=== PATIENT | female | born 1995 | race Caucasian/White ===

== ENCOUNTER 2017-11-08 22:03 | Emergency (ER) | payer OTHER ==
[2017-11-08 22:18] VITALS: BP 124/88; PULSE 74; RESP 16; TEMP 98.2
[2017-11-08] MEDS ORDERED: IBUPROFEN 800 MG TAB PO STA (22:42)
--- NOTE | 2017-11-08 22:45 | ED ---
Back Pain HPI - General Chief Complaint: Back Pain/Injury Stated Complaint: back pain Time Seen by Provider: 11/08/17 22:28 Source: patient Limitations: no limitations - History of Present Illness Initial Comments: this is a 22-year-old female, who is 6 weeks presenting today for chief complaint of low back pain 2 days. Patient states that she just began working again 2 days ago, and since she has been having increasing low back pain. She states that is worse when she bends forward or slouches. Patient states that the pain is localized to the lumbar spine without radiation. Patient denies any trauma to the lumbar spine, falls, pain in the lower extremities, numbness, tingling, muscle weakness of the lower extremities, tingling or paresthesias. Patient denies any loss of bowel bladder control, urinary retention, IV drug use, fever, chills or any other associated symptoms. Patient states that she has not applied ice to her back or take any medication. She is breast-feeding.Vital signs stable upon arrival, afebrile. Remainder of review of systems negative, patient denies any recent fever, chills , shortness of breath, chest pain, abdominal pain, nausea or vomiting, numbness or tingling, dysuria or hematuria, constipation or diarrhea, headaches or visual changes, or any other complaints. - Related Data Previous Rx's Medication Instructions Recorded Doxycycline [Vibramycin] 100 mg PO Q12HR #56 capsule 11/11/15 Ibuprofen [Motrin] 800 mg PO Q8H PRN 7 Days #21 tab 11/08/17 Allergies Allergy/AdvReac Type Severity Reaction Status Date / Time No Known Allergies Allergy Verified 11/08/17 22:19 Review of Systems ROS Statement: Those systems with pertinent positive or pertinent negative responses have been documented in the HPI. ROS Other: All systems not noted in ROS Statement are negative. Constitutional: Denies: fever, chills, weight change, night sweats Respiratory: Denies: cough, dyspnea Cardiovascular: Denies: chest pain, palpitations, dyspnea on exertion, edema Gastrointestinal: Denies: abdominal pain, nausea, vomiting, diarrhea, constipation Genitourinary: Denies: urgency, dysuria Musculoskeletal: Reports: as per HPI, back pain, myalgia. Denies: joint swelling, arthralgia Skin: Denies: rash Neurological: Denies: headache, weakness, numbness, paresthesias, confusion, abnormal gait Psychiatric: Denies: depression Past Medical History Past Medical History: No Reported History Additional Past Medical History / Comment(s): left wrist fracture History of Any Multi-Drug Resistant Organisms: None Reported Past Surgical History: No Surgical Hx Reported Past Psychological History: Anxiety Smoking Status: Former smoker Past Alcohol Use History: None Reported Past Drug Use History: None Reported General Exam - General Exam Comments Initial Comments: General: The patient is awake and alert, in no distress, and does not appear acutely ill. Eye: Pupils are equal, round and reactive to light, extra-ocular movements are intact. No nystagmus. There is normal conjunctiva bilaterally. No signs of icterus. Ears, nose, mouth and throat: There are moist mucous membranes and no oral lesions. Neck: The neck is supple, there is no tenderness or JVD. Cardiovascular: There is a regular rate and rhythm. No murmur, rub or gallop is appreciated. Respiratory: Lungs are clear to auscultation, respirations are non-labored, breath sounds are equal. No wheezes, stridor, rales, or rhonchi. Gastrointestinal: Soft, non-distended, non-tender abdomen without masses or organomegaly noted. There is no rebound or guarding present. No CVA tenderness. Bowel sounds are unremarkable.no pulsatile masses. Musculoskeletal: Full ROM at the lumbar spine with for flexion, hyperextension, rotation, lateral flexion, she notes discomfort with forward flexion, however she does movements with ease and without hesitation.examined Strength 5/5 of the lower extremities equally bilaterally. Sensation intact of the lower equally bilaterally, including in the saddle region. DP and radial pulses equal bilaterally 2+. +2 deep tendon reflexes including patellar and Achilles. No evidence of mild clonus or fascicular lesions. Patient is able to heel and toe walk without difficulty. Negative straight leg raise bilaterally. Neurological: A&O x 3. CN II-XII intact, There are no obvious motor or sensory deficits. Coordination appears grossly intact. Speech is normal. Skin: Skin is warm and dry and no rashes or lesions are noted. Psychiatric: Cooperative, appropriate mood & affect, normal judgment. Limitations: no limitations Course Vital Signs 11/08/17 22:14 Temperature 98.2 F Pulse Rate 74 Respiratory 16 Rate Blood Pressure 124/88 O2 Sat by Pulse 99 Oximetry Medical Decision Making - Medical Decision Making at this time given no history of trauma, no history of IV drug use and patient is afebrile at low suspicion for a fracture of the spine or epidural abscess. Given patient's pain correlating with going back to work after 6 weeks off I suspicion for low back strain. Patient states that she has to a lot of stretching and bending over at work. This time I feel patient has low back strain, I would benefit from rest, icing and heating of the lumbar spine and taking ibuprofen 800 for pain management. Case discussed in detail with Dr. Galvin who agrees the plan. pt d/c in stable condition. patient is told to return to emergency department for any fever, night sweats, lower extremity weakness, loss of bowel bladder control or worsening/change in symptoms. Patient verbalized understanding. patient is instructed not to use ibuprofen and breast feed within 8 hours of dosage, pt verbalized understanding. Patient was instructed to follow-up with primary care 1-2 days. Patient agreed. Disposition Clinical Impression: Low back strain Disposition: HOME SELF-CARE Condition: Good Instructions: Low Back Strain (ED), Acute Low Back Pain (ED) Additional Instructions: Please use medication as discussed. Please follow-up with family doctor in the next 2 days of symptoms have not improved. Please return to emergency room if the symptoms increase or worsen or for any other concerns. Prescriptions: Ibuprofen [Motrin] 800 mg PO Q8H PRN 7 Days #21 tab PRN Reason: Pain Is patient prescribed a controlled substance at d/c from ED?: No Referrals: None,Stated [Primary Care Provider] - 1-2 days Time of Disposition: 22:45
== END 2017-11-08 22:58 | disposition home or self-care (01) ==
LOC: EC 22:03
DX: S39.012A Strain of muscle, fascia and tendon of lower back, initial encounter (principal); Z87.891 Personal history of nicotine dependence; X50.9XXA Other and unspecified overexertion or strenuous movements or postures, initial encounter
CPT/HCPCS: 99283

== ENCOUNTER 2018-03-18 12:34 | Emergency (ER) | payer OTHER ==
--- NOTE | 2018-03-18 13:48 | ED ---
General Adult HPI - General Chief complaint: Abdominal Pain Stated complaint: constipation Time Seen by Provider: 03/18/18 13:11 Source: patient, RN notes reviewed Mode of arrival: ambulatory Limitations: no limitations - History of Present Illness Initial comments: 23-year-old female presents to the emergency department for a chief complaint of constipation. Patient states she has had some lower abdominal cramping for the past 2 days. She states she has not had a bowel movement for 2 days. She states prior to that she has had bright red blood when wiping after a bowel movement and some pain. Patient states her bowel movements are smaller than normal. She has not taken anything for constipation. Patient denies dysuria. Patient does admit to vaginal discharge, denies concern for STDs at this time. Patient denies nausea and vomiting, states she is eating and drinking normally. Patient unsure but states there is a chance of . Patient has no other complaints at this time including shortness of breath, chest pain, nausea or vomiting, headache, or visual changes. - Related Data Home Medications Medication Instructions Recorded Confirmed No Known Home Medications 03/18/18 03/18/18 Allergies Allergy/AdvReac Type Severity Reaction Status Date / Time No Known Allergies Allergy Verified 03/18/18 13:30 Review of Systems ROS Statement: Those systems with pertinent positive or pertinent negative responses have been documented in the HPI. ROS Other: All systems not noted in ROS Statement are negative. Past Medical History Past Medical History: No Reported History Additional Past Medical History / Comment(s): left wrist fracture History of Any Multi-Drug Resistant Organisms: None Reported Past Surgical History: No Surgical Hx Reported Past Psychological History: Anxiety Smoking Status: Current every day smoker Past Alcohol Use History: None Reported Past Drug Use History: Marijuana General Exam Limitations: no limitations General appearance: alert, in no apparent distress Head exam: Present: atraumatic, normocephalic, normal inspection Eye exam: Present: normal appearance, PERRL, EOMI. Absent: scleral icterus, conjunctival injection, periorbital swelling ENT exam: Present: normal exam, mucous membranes moist Neck exam: Present: normal inspection, full ROM. Absent: tenderness, meningismus, lymphadenopathy Respiratory exam: Present: normal lung sounds bilaterally. Absent: respiratory distress, wheezes, rales, rhonchi, stridor Cardiovascular Exam: Present: regular rate, normal rhythm, normal heart sounds. Absent: systolic murmur, diastolic murmur, rubs, gallop, clicks GI/Abdominal exam: Present: soft, normal bowel sounds. Absent: distended, tenderness (no significant abdominal tenderness. no mcburney point tenderness, negative rovsing, obturator, no rebound tenderness), guarding, rebound, rigid Rectal exam: Present: normal inspection, normal rectal tone, heme (+) stool. Absent: bloody stool, fecal impaction, hemorrhoids, mass, tenderness External exam: Present: normal external exam, other ([place] as [employer]). Absent : erythema, swelling, lesions, lacerations, ecchymosis Speculum exam: Present: normal speculum exam. Absent: erythema, vaginal discharge, cervical discharge, vaginal bleeding, foreign body, tissue, laceration By manual exam: Present: normal by manual exam. Absent: cervical motion tenderness, adnexal tenderness, adnexal mass, uterine enlargement, uterine tenderness, other Neurological exam: Present: alert, oriented X3, CN II-XII intact Psychiatric exam: Present: normal affect, normal mood Course Vital Signs 03/18/18 03/18/18 12:36 14:37 Temperature 98.1 F Pulse Rate 70 59 L Respiratory 18 20 Rate Blood Pressure 104/68 113/77 O2 Sat by Pulse 100 100 Oximetry Medical Decision Making - Medical Decision Making 23-year-old female presents to the emergency department for constipation. Patient states she has not had a bowel movement for 2 days and previously her bowel movements have been harder and smaller than normal. Patient states she feels she needs to have a bowel movement. Patient has also noticed small bright red blood after wiping. She also admits to vaginal discharge. Pelvic exam was done which did not demonstrate any significant vaginal discharge however cultures of gonorrhea chlamydia and Trichomonas were obtained. Trichomonas negative. Gonorrhea and chlamydia pending, patient refuses empiric treatment. Unimpressive abdominal exam, no significant tenderness. Rectal exam did not reveal any impaction Or hemorrhoids. CBC and CMP are unremarkable. Glucose 69, patient given juice and chips. Urine does not show any significant evidence of infection, this will be cultured. Occult stool was positive. Patient was given magnesium citrate, she would prefer to take this at home. I did recommend following up with primary care to make sure blood in the stool resolves. No gross blood noted on exam. Patient will return if she has any worsening symptoms or if symptoms persist after magnesium citrate. Also discussed high fiber diet. - Lab Data Result diagrams: 03/18/18 13:15 03/18/18 13:15 Lab Results 03/18/18 03/18/18 03/18/18 Range/Units 13:15 13:15 13:15 WBC (3.8-10.6) k/uL RBC (3.80-5.40) m/uL Hgb (11.4-16.0) gm/dL Hct (34.0-46.0) % MCV (80.0-100.0) fL MCH (25.0-35.0) pg MCHC (31.0-37.0) g/dL RDW (11.5-15.5) % Plt Count (150-450) k/uL Neutrophils % % Lymphocytes % % Monocytes % % Eosinophils % % Basophils % % Neutrophils # (1.3-7.7) k/uL Lymphocytes # (1.0-4.8) k/uL Monocytes # (0-1.0) k/uL Eosinophils # (0-0.7) k/uL Basophils # (0-0.2) k/uL Manual Slide Review Large Platelets Sodium 142 (137-145) mmol/L Potassium 3.9 (3.5-5.1) mmol/L Chloride 109 H (98-107) mmol/L Carbon Dioxide 26 (22-30) mmol/L Anion Gap 7 mmol/L BUN 9 (7-17) mg/dL Creatinine 0.66 (0.52-1.04) mg/dL Est GFR (CKD-EPI)AfAm >90 (>60 ml/min/1.73 sqM) Est GFR (CKD-EPI)NonAf >90 (>60 ml/min/1.73 sqM) Glucose 69 L (74-99) mg/dL Calcium 9.7 (8.4-10.2) mg/dL Total Bilirubin 0.6 (0.2-1.3) mg/dL AST 19 (14-36) U/L ALT 25 (9-52) U/L Alkaline Phosphatase 29 L (38-126) U/L Total Protein 6.4 (6.3-8.2) g/dL Albumin 4.1 (3.5-5.0) g/dL Amylase 51 (30-110) U/L Lipase 47 (23-300) U/L Urine Color Yellow Urine Appearance Cloudy H (Clear) Urine pH 7.0 (5.0-8.0) Ur Specific [place] 1.019 (1.001-1.035) Urine Protein Trace H (Negative) Urine Glucose (UA) Negative (Negative) Urine Ketones Negative (Negative) Urine Blood Negative (Negative) Urine Nitrite Negative (Negative) Urine Bilirubin Negative (Negative) Urine Urobilinogen 2.0 (<2.0) mg/dL Ur Leukocyte Esterase Negative (Negative) Ur Squamous Epith Cells 2 (0-4) /hpf Amorphous Sediment Moderate H (None) /hpf Hyaline Casts 3 H (0-2) /lpf Urine Mucus Few H (None) /hpf Urine HCG, Qual Not Detected (Not Detectd) Stool Occult Blood (Negative) Trichomonas Ag (Rapid) (Negative) 03/18/18 03/18/18 03/18/18 Range/Units 13:15 14:06 14:06 WBC 4.6 (3.8-10.6) k/uL RBC 4.51 (3.80-5.40) m/uL Hgb 12.5 (11.4-16.0) gm/dL Hct 39.1 (34.0-46.0) % MCV 86.7 (80.0-100.0) fL MCH 27.7 (25.0-35.0) pg MCHC 31.9 (31.0-37.0) g/dL RDW 14.7 (11.5-15.5) % Plt Count 145 L (150-450) k/uL Neutrophils % 51 % Lymphocytes % 39 % Monocytes % 6 % Eosinophils % 1 % Basophils % 1 % Neutrophils # 2.3 (1.3-7.7) k/uL Lymphocytes # 1.8 (1.0-4.8) k/uL Monocytes # 0.3 (0-1.0) k/uL Eosinophils # 0.1 (0-0.7) k/uL Basophils # 0.0 (0-0.2) k/uL Manual Slide Review Performed Large Platelets Present Sodium (137-145) mmol/L Potassium (3.5-5.1) mmol/L Chloride (98-107) mmol/L Carbon Dioxide (22-30) mmol/L Anion Gap mmol/L BUN (7-17) mg/dL Creatinine (0.52-1.04) mg/dL Est GFR (CKD-EPI)AfAm (>60 ml/min/1.73 sqM) Est GFR (CKD-EPI)NonAf (>60 ml/min/1.73 sqM) Glucose (74-99) mg/dL Calcium (8.4-10.2) mg/dL Total Bilirubin (0.2-1.3) mg/dL AST (14-36) U/L ALT (9-52) U/L Alkaline Phosphatase (38-126) U/L Total Protein (6.3-8.2) g/dL Albumin (3.5-5.0) g/dL Amylase (30-110) U/L Lipase (23-300) U/L Urine Color Urine Appearance (Clear) Urine pH (5.0-8.0) Ur Specific [place] (1.001-1.035) Urine Protein (Negative) Urine Glucose (UA) (Negative) Urine Ketones (Negative) Urine Blood (Negative) Urine Nitrite (Negative) Urine Bilirubin (Negative) Urine Urobilinogen (<2.0) mg/dL Ur Leukocyte Esterase (Negative) Ur Squamous Epith Cells (0-4) /hpf Amorphous Sediment (None) /hpf Hyaline Casts (0-2) /lpf Urine Mucus (None) /hpf Urine HCG, Qual (Not Detectd) Stool Occult Blood Positive H (Negative) Trichomonas Ag (Rapid) Negative (Negative) Disposition Clinical Impression: Constipation, Abdominal cramping Disposition: HOME SELF-CARE Condition: Good Instructions: Constipation (ED), High Fiber Diet (ED), Abdominal Pain (ED) Additional Instructions: Take Mag Citrate as directed. Please follow up with primary care in 1-2 days. Return to the emergency department if you have any worsening symptoms. Is patient prescribed a controlled substance at d/c from ED?: No Referrals: Munira Kincaid MD [Primary Care Provider] - 1-2 days Time of Disposition: 15:35
[2018-03-18] MEDS ORDERED: MAGNESIUM CITRATE 296 ML BOTTLE PO ONE (13:49)
[2018-03-18 14:08] LABS: Amorphous Sediment,Urine Moderate /hpf; Appearance,Urine Cloudy (Clear); Bilirubin,Urine Negative (Negative); Blood,Urine Negative (Negative); Color,Urine Yellow; Glucose,Urine (UA) Negative (Negative); Hyaline Casts,Urine 3 /lpf (0-2); Ketones,Urine Negative (Negative); Leukocyte Esterase,Urine Negative (Negative); Mucus,Urine Few /hpf; Nitrite,Urine Negative (Negative); Protein,Urine Trace (Negative); Specific Gravity,Urine 1.019 (1.001-1.035); Squamous Epithelial Cell,Urine 2 /hpf (0-4)
[2018-03-18 14:18] LABS: ALT 25 U/L (9-52); AST 19 U/L (14-36); Albumin 4.1 g/dL (3.5-5.0); Alkaline Phosphatase 29 U/L (38-126); Amylase 51 U/L (30-110); Anion Gap 7 mmol/L; Blood Urea Nitrogen 9 mg/dL (7-17); Calcium 9.7 mg/dL (8.4-10.2); Carbon Dioxide 26 mmol/L (22-30); Chloride 109 mmol/L (98-107); Glucose 69 mg/dL (74-99); Lipase 47 U/L (23-300); Potassium 3.9 mmol/L (3.5-5.1); Sodium 142 mmol/L (137-145); Total Bilirubin 0.6 mg/dL (0.2-1.3); Total Protein 6.4 g/dL (6.3-8.2)
[2018-03-18 14:22] LABS: Basophils % (A) 1 %; Eosinophils # (A) 0.1 k/uL (0-0.7); Eosinophils % (A) 1 %; HCT 39.1 % (34.0-46.0); HGB 12.5 gm/dL (11.4-16.0); Lymphocytes # (A) 1.8 k/uL (1.0-4.8); Lymphocytes % (A) 39 %; MCH 27.7 pg (25.0-35.0); MCHC 31.9 g/dL (31.0-37.0); MCV 86.7 fL (80.0-100.0); Mean Platelet Volume 10.5; Monocytes # (A) 0.3 k/uL (0-1.0); Monocytes % (A) 6 %; Neutrophils # (A) 2.3 k/uL (1.3-7.7); Neutrophils % (A) 51 %; Platelet Count 145 k/uL (150-450); RBC 4.51 m/uL (3.80-5.40); RDW 14.7 % (11.5-15.5); WBC 4.6 k/uL (3.8-10.6)
[2018-03-18 14:33] LABS: Large Platelets Present
[2018-03-18 16:00] VITALS: BP 124/87; PULSE 87; RESP 18; TEMP 98.4
[2018-03-19 13:50] LABS: C. trachomatis,PCR Negative (Neg,Equiv); Chlamydia trachomatis Source Vagina
[2018-03-19 13:56] LABS: N. gonorrhoeae,PCR Negative (Neg,Equiv); Neisseria Source Vagina
== END 2018-03-18 16:00 | disposition home or self-care (01) ==
LOC: EC 12:34
DX: K59.00 Constipation, unspecified (principal); F17.200 Nicotine dependence, unspecified, uncomplicated; Z53.29 Procedure and treatment not carried out because of patient's decision for other reasons
CPT/HCPCS: 36415; 80053; 81001; 81025; 82150; 82272; 83690; 85025; 87491; 87591; 87808; 99284

== ENCOUNTER 2019-01-11 14:11 | Emergency (ER) | payer OTHER ==
[2019-01-11 14:16] VITALS: RESP 18
[2019-01-11] MEDS ORDERED: ACETAMINOPHEN TAB 500 MG TAB PO STA (14:43)
[2019-01-11] MEDS ORDERED: SODIUM CHLORIDE 0.9% 1,000 ML IV STA (14:43)
--- NOTE | 2019-01-11 14:48 | ED ---
General Adult HPI - General Chief complaint: Abdominal Pain Stated complaint: 11 wks ,cramping Time Seen by Provider: 01/11/19 14:22 Source: patient, RN notes reviewed Mode of arrival: ambulatory Limitations: no limitations - History of Present Illness Initial comments: 23-year-old female currently about 11 weeks [facility] a chief complaint of pelvic cramping. Patient states that she noticed this last night and it went away. States that this morning she felt fine however the pain returned. She describes it as a sharp cramping pain in her lower pelvic area. Patient does admit to a very small amount of spotting this morning. Denies any dysuria, urinary frequency. Patient did have a [facility] intrauterine outpatient. She does have an appointment with Dr Mcgrath scheduled. Patient has no other complaints at this time including shortness of breath, chest pain, nausea or vomiting, headache, or visual changes. - Related Data Home Medications Medication Instructions Recorded Confirmed No Known Home Medications 03/18/18 03/18/18 Allergies Allergy/AdvReac Type Severity Reaction Status Date / Time No Known Allergies Allergy Verified 01/11/19 14:16 Review of Systems ROS Statement: Those systems with pertinent positive or pertinent negative responses have been documented in the HPI. ROS Other: All systems not noted in ROS Statement are negative. Past Medical History Past Medical History: No Reported History Additional Past Medical History / Comment(s): left wrist fracture History of Any Multi-Drug Resistant Organisms: None Reported Past Surgical History: No Surgical Hx Reported Past Psychological History: Anxiety Smoking Status: Current every day smoker Past Alcohol Use History: None Reported Past Drug Use History: Marijuana General Exam Limitations: no limitations General appearance: alert, in no apparent distress Head exam: Present: atraumatic, normocephalic, normal inspection Eye exam: Present: normal appearance, PERRL, EOMI. Absent: scleral icterus, conjunctival injection, periorbital swelling ENT exam: Present: normal exam, mucous membranes moist Neck exam: Present: normal inspection, full ROM. Absent: tenderness, meningismus, lymphadenopathy Respiratory exam: Present: normal lung sounds bilaterally. Absent: respiratory distress, wheezes, rales, rhonchi, stridor Cardiovascular Exam: Present: regular rate, normal rhythm, normal heart sounds. Absent: systolic murmur, diastolic murmur, rubs, gallop, clicks GI/Abdominal exam: Present: soft, normal bowel sounds. Absent: distended, tenderness (No abdominal tenderness whatsoever), guarding, rebound, rigid External exam: Present: normal external exam. Absent: erythema, swelling, lesions, lacerations, ecchymosis Speculum exam: Present: normal speculum exam. Absent: erythema, vaginal discharge, cervical discharge, vaginal bleeding, foreign body, tissue, laceration By manual exam: Present: uterine tenderness (Minimal uterine tenderness). Absent: normal by manual exam, cervical motion tenderness, adnexal tenderness, adnexal mass Back exam: Absent: CVA tenderness (R), CVA tenderness (L) Neurological exam: Present: alert Psychiatric exam: Present: normal affect, normal mood Course Vital Signs 01/11/19 14:13 Temperature 98.9 F Pulse Rate 77 Respiratory 18 Rate Blood Pressure 108/54 O2 Sat by Pulse 100 Oximetry Medical Decision Making - Medical Decision Making Patient presents for cramping and very minimal spotting earlier this morning. Abdomen is nontender. Patient did have some mild uterine tenderness on pelvic exam. CBC unremarkable. Platelet count is 149 however this is patient's baseline. CMP is unremarkable. Urinalysis does not show any evidence of infection. 2 months is negative, gonorrhea and chlamydia pending. Patient is O+ blood type, does not require RhoGAM. Ultrasound shows a single IUP at 13 weeks. Ventricles do appear visually somewhat prominent during the exam and a dedicated small parts evaluation is recommended. Patient's pain has improved significantly upon reevaluation. She is recommended to follow up with [employer] on Saturday to discuss these ultrasound findings. She will return if she has any worsening symptoms. - Lab Data Result diagrams: 01/11/19 15:00 01/11/19 15:00 Lab Results 01/11/19 01/11/19 01/11/19 Range/Units 15:00 15:00 15:00 WBC 6.7 (3.8-10.6) k/uL RBC 4.11 (3.80-5.40) m/uL Hgb 12.6 (11.4-16.0) gm/dL Hct 36.4 (34.0-46.0) % MCV 88.6 (80.0-100.0) fL MCH 30.7 (25.0-35.0) pg MCHC 34.7 (31.0-37.0) g/dL RDW 12.9 (11.5-15.5) % Plt Count 149 L (150-450) k/uL Neutrophils % 76 % Lymphocytes % 19 % Monocytes % 3 % Eosinophils % 1 % Basophils % 0 % Neutrophils # 5.1 (1.3-7.7) k/uL Lymphocytes # 1.3 (1.0-4.8) k/uL Monocytes # 0.2 (0-1.0) k/uL Eosinophils # 0.1 (0-0.7) k/uL Basophils # 0.0 (0-0.2) k/uL Sodium 137 (137-145) mmol/L Potassium 3.9 (3.5-5.1) mmol/L Chloride 105 (98-107) mmol/L Carbon Dioxide 26 (22-30) mmol/L Anion Gap 6 mmol/L BUN 10 (7-17) mg/dL Creatinine 0.50 L (0.52-1.04) mg/dL Est GFR (CKD-EPI)AfAm >90 (>60 ml/min/1.73 sqM) Est GFR (CKD-EPI)NonAf >90 (>60 ml/min/1.73 sqM) Glucose 74 (74-99) mg/dL Calcium 9.7 (8.4-10.2) mg/dL Total Bilirubin 0.2 (0.2-1.3) mg/dL AST 18 (14-36) U/L ALT 11 (9-52) U/L Alkaline Phosphatase 48 (38-126) U/L Total Protein 7.0 (6.3-8.2) g/dL Albumin 4.0 (3.5-5.0) g/dL Amylase 52 (30-110) U/L Lipase 40 (23-300) U/L Urine Color Urine Appearance (Clear) Urine pH (5.0-8.0) Ur Specific [place] (1.001-1.035) Urine Protein (Negative) Urine Glucose (UA) (Negative) Urine Ketones (Negative) Urine Blood (Negative) Urine Nitrite (Negative) Urine Bilirubin (Negative) Urine Urobilinogen (<2.0) mg/dL Ur Leukocyte Esterase (Negative) Urine WBC (0-5) /hpf Ur Squamous Epith Cells (0-4) /hpf Amorphous Sediment (None) /hpf Urine Mucus (None) /hpf Trichomonas Ag (Rapid) (Negative) Blood Type O Positive Blood Type Recheck O Pos Bld Type Recheck Status No 01/11/19 01/11/19 Range/Units 15:00 15:40 WBC (3.8-10.6) k/uL RBC (3.80-5.40) m/uL Hgb (11.4-16.0) gm/dL Hct (34.0-46.0) % MCV (80.0-100.0) fL MCH (25.0-35.0) pg MCHC (31.0-37.0) g/dL RDW (11.5-15.5) % Plt Count (150-450) k/uL Neutrophils % % Lymphocytes % % Monocytes % % Eosinophils % % Basophils % % Neutrophils # (1.3-7.7) k/uL Lymphocytes # (1.0-4.8) k/uL Monocytes # (0-1.0) k/uL Eosinophils # (0-0.7) k/uL Basophils # (0-0.2) k/uL Sodium (137-145) mmol/L Potassium (3.5-5.1) mmol/L Chloride (98-107) mmol/L Carbon Dioxide (22-30) mmol/L Anion Gap mmol/L BUN (7-17) mg/dL Creatinine (0.52-1.04) mg/dL Est GFR (CKD-EPI)AfAm (>60 ml/min/1.73 sqM) Est GFR (CKD-EPI)NonAf (>60 ml/min/1.73 sqM) Glucose (74-99) mg/dL Calcium (8.4-10.2) mg/dL Total Bilirubin (0.2-1.3) mg/dL AST (14-36) U/L ALT (9-52) U/L Alkaline Phosphatase (38-126) U/L Total Protein (6.3-8.2) g/dL Albumin (3.5-5.0) g/dL Amylase (30-110) U/L Lipase (23-300) U/L Urine Color Yellow Urine Appearance Cloudy H (Clear) Urine pH 6.0 (5.0-8.0) Ur Specific [place] 1.017 (1.001-1.035) Urine Protein Negative (Negative) Urine Glucose (UA) Negative (Negative) Urine Ketones Negative (Negative) Urine Blood Negative (Negative) Urine Nitrite Negative (Negative) Urine Bilirubin Negative (Negative) Urine Urobilinogen <2.0 (<2.0) mg/dL Ur Leukocyte Esterase Negative (Negative) Urine WBC 1 (0-5) /hpf Ur Squamous Epith Cells 1 (0-4) /hpf Amorphous Sediment Few H (None) /hpf Urine Mucus Rare H (None) /hpf Trichomonas Ag (Rapid) Negative (Negative) Blood Type Blood Type Recheck Bld Type Recheck Status Disposition Clinical Impression: Abdominal pain during Disposition: HOME SELF-CARE Condition: Good Instructions (If sedation given, give patient instructions): Abdominal Pain in (ED), Threatened Miscarriage (ED) Additional Instructions: Please follow up with Dr. Mcgrath tomorrow. Discussed need for a dedicated small parts ultrasound due to possibly dilated ventricles. if you have any worsening symptoms be sure to return to the emergency department. Is patient prescribed a controlled substance at d/c from ED?: No Referrals: Munira Kincaid MD [Primary Care Provider] - 1-2 days Florentino Mcgrath DO [REFERRING] - 1-2 days Time of Disposition: 16:16
[2019-01-11 15:16] LABS: Basophils % (A) 0 %; Eosinophils # (A) 0.1 k/uL (0-0.7); Eosinophils % (A) 1 %; HCT 36.4 % (34.0-46.0); HGB 12.6 gm/dL (11.4-16.0); Lymphocytes # (A) 1.3 k/uL (1.0-4.8); Lymphocytes % (A) 19 %; MCH 30.7 pg (25.0-35.0); MCHC 34.7 g/dL (31.0-37.0); MCV 88.6 fL (80.0-100.0); Mean Platelet Volume 8.1; Monocytes # (A) 0.2 k/uL (0-1.0); Monocytes % (A) 3 %; Neutrophils # (A) 5.1 k/uL (1.3-7.7); Neutrophils % (A) 76 %; Platelet Count 149 k/uL (150-450); RBC 4.11 m/uL (3.80-5.40); RDW 12.9 % (11.5-15.5); WBC 6.7 k/uL (3.8-10.6)
[2019-01-11 15:27] LABS: ALT 11 U/L (9-52); AST 18 U/L (14-36); African American GFR (CKD) >90 (>60 ml/min/1.73 sqM); Alkaline Phosphatase 48 U/L (38-126); Amylase 52 U/L (30-110); Anion Gap 6 mmol/L; Blood Urea Nitrogen 10 mg/dL (7-17); Calcium 9.7 mg/dL (8.4-10.2); Carbon Dioxide 26 mmol/L (22-30); Chloride 105 mmol/L (98-107); Glucose 74 mg/dL (74-99); Potassium 3.9 mmol/L (3.5-5.1); Sodium 137 mmol/L (137-145); Total Bilirubin 0.2 mg/dL (0.2-1.3)
--- NOTE | 2019-01-11 15:50 | US ---
EXAMINATION TYPE: Transabdominal DATE OF EXAM: 01/11/2019 3:21 PM COMPARISON: NONE CLINICAL HISTORY: pain cramping. Pt states cramping EXAM PERFORMED: Transabdominal (TA) EXAM MEASUREMENTS: GESTATIONAL AGE / DATING Physician Established: Not yet established Dates by LMP: (12 weeks/0 days) EDC: 07/26/2019 Dates by First Scan: No prior Dates by Current Scan for: (13 weeks/0 days) EDC: 07/19/2019 MATERNAL ANATOMY Uterus: 15.3 x 8.4 x 8.9 cm Right Ovary: 2.9 x 2.0 x 1.7 cm Left Ovary: 2.8 x 2.2 x 1.5 cm Post CDS / Adnexa: wnl Presence of free fluid: No GESTATION / SURVEY CRL: 6.6 cm (13 weeks/0 days) MSD: wnl Heart Rate: 165 bpm Rhythm: Normal IUP: Viable IUP Single, viable IUP/ Questionable dilated ventricles anteriorly, otherwise no other abnormality visu alized at this time IMPRESSION: 1. Single intrauterine gestation estimated at 13 weeks 0 days gestation. Cardiac activity measures 16 5 bpm. 2. Ventricles appear visually somewhat prominent during this examination. Dedicated small parts evaluation is recommended
[2019-01-11 15:52] LABS: Amorphous Sediment,Urine Few /hpf; Appearance,Urine Cloudy (Clear); Bilirubin,Urine Negative (Negative); Blood,Urine Negative (Negative); Color,Urine Yellow; Glucose,Urine (UA) Negative (Negative); Ketones,Urine Negative (Negative); Leukocyte Esterase,Urine Negative (Negative); Mucus,Urine Rare /hpf; Nitrite,Urine Negative (Negative); Protein,Urine Negative (Negative); Specific Gravity,Urine 1.017 (1.001-1.035); Squamous Epithelial Cell,Urine 1 /hpf (0-4); Urobilinogen,Urine <2.0 mg/dL (<2.0); WBC,Urine 1 /hpf (0-5)
[2019-01-11 16:33] VITALS: BP 112/69; PULSE 86; TEMP 98.2
[2019-01-13 15:20] LABS: C. trachomatis,PCR Negative (Neg,Equiv); Chlamydia trachomatis Source Vagina
[2019-01-13 15:46] LABS: N. gonorrhoeae,PCR Negative (Neg,Equiv); Neisseria Source Vagina
== END 2019-01-11 16:33 | disposition home or self-care (01) ==
LOC: EC 14:11
DX: O99.89 Other specified diseases and conditions complicating pregnancy, childbirth and the puerperium (principal); R10.2 Pelvic and perineal pain; O99.331 Smoking (tobacco) complicating pregnancy, first trimester; F17.200 Nicotine dependence, unspecified, uncomplicated; Z3A.13 13 weeks gestation of pregnancy
CPT/HCPCS: 36415; 76801; 80053; 81001; 82150; 83690; 84702; 85025; 86900; 86901; 87491; 87591; 87808; 96360; 99284

== ENCOUNTER → 2019-02-02 | Outpatient (CLI) | payer OTHER ==
--- NOTE | 2019-02-02 12:47 | US ---
EXAMINATION TYPE: US OB >= 14 wk fetus DATE OF EXAM: 02/02/2019 COMPARISON: First trimester ultrasound January 11, 2019 CLINICAL HISTORY: Z34.80 SUPERVISION OF OTHER NORMAL [id number]; right pelvic tenderness x 2 days TECHNIQUE: Transabdominal (TA) GESTATIONAL AGE / DATING Physician Established: (15 weeks/0 days) EDC: 07/27/2019 Dates by LMP: (15 weeks/1 day) EDC: 07/26/2019 Dates by First Scan: (16 weeks/1 day) EDC: 07/19/2019 Dates by Current Scan: (16 weeks/1day) EDC:07/19/2019) Beta HCG (if available): NA SURVEY IUP: Single PLACENTA: fundal posterior; lobular end shape to superior and inferior portions and inferior area is at patient's area of tenderness PREVIA: No Previa DIEGO: 11.6 cm Normal CERVICAL LENGTH (transabdominal: norm > 3.0cm): 3.03 cm BIOMETRY PRESENTATION: Breech LIE: Longitudinal BPD: 3.4 cm 16 weeks / 4 days HC: 12.3 cm 16 weeks / 1 day AC: 10.2 cm 16 weeks / 1 day FL: 2.0 cm 15 weeks / 6 days ESTIMATED WEIGHT IN GRAMS: 143.5 grams ESTIMATED WEIGHT IN LBS/OZ: 0 lbs. 5 oz. WEIGHT PERCENTAGE BASED ON ESTABLISHED DATES: 93.1% HC/AC: 1.21 Normal FL/AC: 19.25 Normal HEART RATE: 151 bpm RHYTHM: Normal Choroid Plexus = 0.64cm and is wnl. Single, live IUP,16 weeks/1day, EDC:07/19/2019, HR 151bpm. Redemonstration single live intrauterine . No cervical thinning. No ultrasound evidence for previa. Current breech presentation. Calculated amniotic fluid index within normal limits. biom etry measurements congruent and felt within normal limits. Choroid plexuses are within normal limits on the images saved. IMPRESSION: As above.
== END | disposition home or self-care (01) ==
LOC: RADUSWWP 09:57
PROVIDERS: ATTEND Obstetrics & Gynecology
DX: O32.1XX0 Maternal care for breech presentation, not applicable or unspecified (principal); Z3A.16 16 weeks gestation of pregnancy
CPT/HCPCS: 76805

== ENCOUNTER 2019-07-16 05:50 | Inpatient (IN) | payer OTHER ==
[2019-07-16] MEDS ORDERED: OXYTOCIN 10 UNIT/ML 1 ML VIAL IM PRN (06:14)
[2019-07-16] MEDS ORDERED: LIDOCAINE 0.5% (PF) 5 MG/ML (50 ML SDV) SQ PRN (06:14)
[2019-07-16] MEDS ORDERED: METHYLERGONOVINE 0.2 MG/ML 1 ML AMP IM PRN (06:14)
[2019-07-16] MEDS ORDERED: TERBUTALINE 1 MG/ML VIAL SQ PRN (06:14)
[2019-07-16] MEDS ORDERED: CARBOPROST TROMETHAMINE 250 MCG/ML 1 ML AMP IM PRN (06:14)
[2019-07-16] MEDS ORDERED: OXYTOCIN 30 UNITS/500 ML NS 30 UNIT in SALINE 1 500ML.BAG IV SCH (06:15)
[2019-07-16] MEDS: LACTATED RINGERS 1,000 ML IV SCH ×3 (06:52→13:12)
[2019-07-16 07:27] LABS: Basophils % (A) 0 %; Eosinophils # (A) 0.1 k/uL (0-0.7); Eosinophils % (A) 2 %; Lymphocytes # (A) 1.4 k/uL (1.0-4.8); Lymphocytes % (A) 25 %; MCH 31.4 pg (25.0-35.0); MCHC 33.5 g/dL (31.0-37.0); MCV 93.7 fL (80.0-100.0); Mean Platelet Volume 13.6; Monocytes # (A) 0.3 k/uL (0-1.0); Monocytes % (A) 6 %; Neutrophils # (A) 3.5 k/uL (1.3-7.7); Neutrophils % (A) 65 %; Platelet Count 114 k/uL (150-450); RBC 3.52 m/uL (3.80-5.40); RDW 13.6 % (11.5-15.5); WBC 5.4 k/uL (3.8-10.6)
[2019-07-16 07:35] LABS: Amphetamine Screen,Urine Not Detected (NotDetected); Barbiturate Screen,Urine Not Detected (NotDetected); Benzodiazepines Screen,Urine Not Detected (NotDetected); Cocaine Screen,Urine Not Detected (NotDetected); Methadone Screen, Urine Not Detected (NotDetected); Opiate Screen,Urine Not Detected (NotDetected); Oxycodone Screen, Urine Not Detected (NotDetected); Phencyclidine Screen,Urine Not Detected (NotDetected); Tricyclic Antidepressant,Urine Not Detected (NotDetected); Urn Cannabinoid Scrn Not Detected (NotDetected)
[2019-07-16 07:49] LABS: Large Platelets Present
--- NOTE | 2019-07-16 08:37 | P.HPOB ---
History of Present Illness H&P Date: 07/16/19 Chief Complaint: IUP at 39 and 0/7 weeks, IOL This is a 24-year-old 3 para 2001 at 39-0/7 weeks that presents to labor and delivery for elective induction of labor. Patient notes good movement denies contractions or vaginal bleeding. Patient has been receiving routine care with myself, since 21 weeks. blood work shows a blood type of O+, rubella status is immune, hepatitis b surface antigen negative, hiv negative, rpr nonreactive, group beta strep was negative. Review of Systems Constitutional: Denies chills, Denies fatigue, Denies fever Ears, nose, mouth and throat: Denies headache Cardiovascular: Reports leg edema Respiratory: Denies dyspnea Gastrointestinal: Denies constipation, Denies diarrhea, Denies nausea, Denies vomiting Genitourinary: Reports Past Medical History Past Medical History: No Reported History Additional Past Medical History / Comment(s): left wrist fracture History of Any Multi-Drug Resistant Organisms: None Reported Past Surgical History: No Surgical Hx Reported Past Anesthesia/Blood Transfusion Reactions: No Reported Reaction Past Psychological History: Anxiety Smoking Status: Former smoker Past Alcohol Use History: None Reported Past Drug Use History: Marijuana Additional Drug Use History / Comment(s): pt states quit smoking the beginning of the , also states she quit marijuana summer 2018 - Past Family History Mother Family Medical History: No Reported History Medications and Allergies Home Medications Medication Instructions Recorded Confirmed Type Pnv No.95/Ferrous Fum/Folic AC 1 tab PO DAILY 07/16/19 07/16/19 History [ Multivitamin Tablet] Allergies Allergy/AdvReac Type Severity Reaction Status Date / Time No Known Allergies Allergy Verified 07/16/19 06:08 Exam Osteopathic Statement: *. No significant issues noted on an osteopathic s tructural exam other than those noted in the History and Physical/Consult. 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 On cervical exam she is 2/70/-2 station bulging bag of water was noted amniotomy is performed and clear fluid was obtained. Results Result Diagrams: 07/16/19 06:54 Abnormal Lab Results - Last 24 Hours (Table) 07/16/19 Range/Units 06:54 RBC 3.52 L (3.80-5.40) m/uL Hgb 11.0 L (11.4-16.0) gm/dL Hct 33.0 L (34.0-46.0) % Plt Count 114 L (150-450) k/uL Assessment and Plan (1) Term Current Visit: Yes Status: Acute Code(s): Z34.90 - ENCNTR FOR SUPRVSN OF NORMAL , UNSP, UNSP TRIMESTER SNOMED Code(s): 00843780 Plan: Patient is admitted to labor and delivery for induction of labor. Pitocin induction is begun per hospital protocol. Patient does desire epidural for analgesia. Anticipate spontaneous vaginal delivery later today.
[2019-07-16] MEDS ORDERED: ROPIVACAINE 100 MG, fentaNYL (PF) 200 MCG in SODIUM CHLORIDE 0.9% 76 ML EPIDURAL ONE (13:11)
[2019-07-16] MEDS ORDERED: ACETAMINOPHEN TAB 325 MG TAB PO PRN (14:10)
[2019-07-16] MEDS ORDERED: SIMETHICONE 80 MG CHEWABLE PO PRN (14:10)
[2019-07-16] MEDS ORDERED: diphenhydrAMINE 25 MG CAP PO PRN (14:10)
[2019-07-16] MEDS ORDERED: LANOLIN CREAM 5 GM TUBE TOPICAL PRN (14:10)
[2019-07-16] MEDS ORDERED: HYDROcodone/APAP 5-325MG 1 EACH TAB PO PRN (14:10)
[2019-07-16] MEDS ORDERED: BENZOCAINE/MENTHOL SPRAY 1 GM/SPRAY AEROSOL TOPICAL PRN (14:10)
[2019-07-16] MEDS ORDERED: ZOLPIDEM 5 MG TAB PO PRN (14:10)
[2019-07-16] MEDS ORDERED: diphenhydrAMINE 50 MG/ML 1 ML VIAL IVP PRN ×2 (14:10)
[2019-07-16] MEDS ORDERED: HYDROCORTISONE 2.5% RECTAL CREAM 30 GM TUBE RECTAL PRN (14:10)
[2019-07-16] MEDS ORDERED: WITCH HAZEL 1 EACH MED..PAD TOPICAL PRN (14:10)
[2019-07-16] MEDS ORDERED: diphenhydrAMINE 50 MG CAP PO PRN (14:10)
[2019-07-16] MEDS ORDERED: OXYTOCIN 20 UNITS/1000 ML NS 1,000 ML IV SCH (14:15)
--- NOTE | 2019-07-16 15:35 | P.PROBDLV ---
Vaginal Delivery Note - . Vaginal Delivery Note: This pleasant 24-year-old 3 para 2001 at 39-0/7 weeks presented to labor and delivery for elective induction of labor. Patient was begun on Pitocin for induction of labor. Patient underwent amniotomy and clear fluid was obtained. Patient requested epidural placement soon afterwards. Epidural was placed without difficulty by the anesthesia . Patient progressed quickly to complete began pushing and had a normal spontaneous vaginal delivery of a viable female infant at 1346, weight of 7 lbs. 3 oz. with Apgars of 9 and 9 at one and 5 minutes respectively. After two-minute delayed the umbilical cord was doubly clamped and cut, and the was handed off to the maternal abdomen. The placenta was then delivered spontaneously intact with a three-vessel cord. The vaginal vault was inspected and no lacerations were noted. The uterus is noted to be firm and below the umbilicus, estimated blood loss 400 mL as after the placenta was delivered patient had significant blood loss. A Red rubber catheter was used to drain the bladder of approximately 100 mL of clear yellow urine. After a couple clots were expelled bleeding was noted to be much improved, Methergine was given. Patient and tolerated delivery well and are resting comfortably All counts were noted to be correct x 2
[2019-07-16] MEDS: SENNOSIDES-DOCUSATE SODIUM 1 EACH TAB PO SCH (20:43)
[2019-07-16] MEDS: IBUPROFEN 600 MG TAB PO PRN (20:43)
[2019-07-17] MEDS: IBUPROFEN 600 MG TAB PO PRN ×2 (06:44→16:29)
[2019-07-17 06:59] LABS: Basophils % (A) 0 %; Eosinophils # (A) 0.1 k/uL (0-0.7); Eosinophils % (A) 1 %; HCT 30.7 % (34.0-46.0); HGB 10.3 gm/dL (11.4-16.0); Lymphocytes # (A) 1.2 k/uL (1.0-4.8); Lymphocytes % (A) 17 %; MCH 30.9 pg (25.0-35.0); MCHC 33.6 g/dL (31.0-37.0); MCV 92.2 fL (80.0-100.0); Mean Platelet Volume 12.1; Monocytes # (A) 0.5 k/uL (0-1.0); Monocytes % (A) 6 %; Neutrophils # (A) 5.4 k/uL (1.3-7.7); Neutrophils % (A) 74 %; Platelet Count 126 k/uL (150-450); RBC 3.33 m/uL (3.80-5.40); WBC 7.3 k/uL (3.8-10.6)
[2019-07-17] MEDS: SENNOSIDES-DOCUSATE SODIUM 1 EACH TAB PO SCH (08:32)
--- NOTE | 2019-07-17 08:43 | P.DS ---
Providers Date of admission: 07/16/19 05:50 Expected date of discharge: 07/17/19 Attending physician: Cindy Alberts Primary care physician: Stated None - Discharge Diagnosis(es) (1) Term Current Visit: Yes Status: Acute (2) Status post normal vaginal delivery Current Visit: Yes Status: Acute Hospital Course: This 24-year-old 3 para 2001 at 39-0/7 weeks presented to labor and delivery for elective induction of labor. Patient was started on Pitocin induction of labor per hospital protocol. Patient underwent amniotomy clear fluid was obtained. Patient became uncomfortable and requested epidural placement. Epidural was placed without difficulty by the anesthesia department. Patient progressed quickly to complete began pushing normal spontaneous vaginal delivery of a viable female infant at 1346. Weight of 7 lbs. 3 oz. with Apgars of 9 and 9 at one and 5 minutes respectively. After two-minute delayed the umbilical cord was doubly clamped and cut. Patient did not sustain any vaginal lacerations during delivery. Placenta was delivered spontaneous intact three-vessel cord was noted. Patient's course has been essentially uneventful. On this day #1 she is ambulating and voiding without difficulty, she is breast-feeding with some difficulty. She states she is feeling cramping and just received ibuprofen. She does desire discharge home today. Patient Condition at Discharge: Good Plan - Discharge Summary New Discharge Prescriptions: No Action Pnv No.95/Ferrous Fum/Folic AC [ Multivitamin Tablet] 1 tab PO DAILY Discharge Medication List Pnv No.95/Ferrous Fum/Folic AC [ Multivitamin Tablet] 1 tab PO DAILY 07/16/19 [History] Follow up Appointment(s)/Referral(s): Cindy Alberts DO [Doctor of Osteopathic Medicine] - 6 Weeks Patient Instructions/Handouts: Vaginal Delivery (DC), Vaginal Delivery (GEN) Discharge Disposition: HOME SELF-CARE
[2019-07-17] MEDS ORDERED: PRENATAL VIT-IRON-FOLIC ACID 1 EACH CAP PO SCH (09:00)
[2019-07-17 09:16] VITALS: RESP 20
[2019-07-17 09:56] LABS: Large Platelets Present
[2019-07-17 17:19] VITALS: BP 110/71; PULSE 64; TEMP 99.3
== END 2019-07-17 20:30 | disposition home or self-care (01) | DRG 807 ==
LOC: 4FBP 05:50
PROVIDERS: ADMIT Obstetrics & Gynecology Obstetrics; ATTEND Obstetrics & Gynecology Obstetrics
PROC: 10907ZC Drainage of Amniotic Fluid, Therapeutic from Products of Conception, Via Natural or Artificial Opening (ICD-10-PCS; principal; 2019-07-16)
PROC: 3E033VJ Introduction of Other Hormone into Peripheral Vein, Percutaneous Approach (ICD-10-PCS; principal; 2019-07-16)
PROC: 10E0XZZ Delivery of Products of Conception, External Approach (ICD-10-PCS; principal; 2019-07-16)
DX: O99.344 Other mental disorders complicating childbirth (principal); Z37.0 Single live birth; F41.9 Anxiety disorder, unspecified; Z3A.39 39 weeks gestation of pregnancy; Z87.891 Personal history of nicotine dependence
CPT/HCPCS: 80306; 85025; 86850; 86900; 86901

== ENCOUNTER 2020-04-04 11:28 | Emergency (ER) | payer OTHER ==
[2020-04-04 11:36] VITALS: TEMP 99.1
--- NOTE | 2020-04-04 12:20 | ED ---
Psych HPI <Isaac Chavez - Last Filed: 04/04/20 16:12> - General Source: patient, police, RN notes reviewed Mode of arrival: ambulatory Limitations: no limitations <Bob Gillette - Last Filed: 04/05/20 22:54> - General Chief Complaint: Psychiatric Symptoms Stated Complaint: Mental Health Time Seen by Provider: 04/04/20 11:38 - History of Present Illness Initial Comments: This a 25-year-old female presents emergency Department chief complaint depression, suicidal ideation. Patient states she has a history of depression, schizophrenia. Patient's on any medications currently. She states it was not helping her. She has mid to marijuana use no alcohol use today. Patient denies any physical complaints she has been having thoughts of harming herself. (Bob Gillette) - Related Data Home Medications Medication Instructions Recorded Confirmed No Known Home Medications 04/04/20 04/04/20 Allergies Allergy/AdvReac Type Severity Reaction Status Date / Time No Known Allergies Allergy Verified 04/04/20 12:51 Review of Systems ROS Other: All systems not noted in ROS Statement are negative. <Isaac Chavez - Last Filed: 04/04/20 16:12> ROS Other: All systems not noted in ROS Statement are negative. <Bob Gillette - Last Filed: 04/05/20 22:54> ROS Statement: Those systems with pertinent positive or pertinent negative responses have been documented in the HPI. Past Medical History Past Medical History: No Reported History Additional Past Medical History / Comment(s): left wrist fracture History of Any Multi-Drug Resistant Organisms: None Reported Past Surgical History: No Surgical Hx Reported Past Anesthesia/Blood Transfusion Reactions: No Reported Reaction Past Psychological History: Anxiety, Depression Smoking Status: Current every day smoker Past Alcohol Use History: None Reported Past Drug Use History: Marijuana - Past Family History Mother Family Medical History: No Reported History <Bob Gillette - Last Filed: 04/05/20 22:54> General Exam Limitations: no limitations General appearance: alert, in no apparent distress Head exam: Present: atraumatic, normocephalic, normal inspection Eye exam: Present: normal appearance, PERRL, EOMI. Absent: scleral icterus, conjunctival injection, periorbital swelling ENT exam: Present: normal exam, normal oropharynx, mucous membranes moist, TM's normal bilaterally Neck exam: Present: normal inspection, full ROM. Absent: tenderness, meningismus, lymphadenopathy Respiratory exam: Present: normal lung sounds bilaterally. Absent: respiratory distress, wheezes, rales, rhonchi, stridor Cardiovascular Exam: Present: regular rate, normal rhythm, normal heart sounds. Absent: systolic murmur, diastolic murmur, rubs, gallop, clicks GI/Abdominal exam: Present: soft, normal bowel sounds. Absent: distended, tenderness, guarding, rebound, rigid Neurological exam: Present: alert, oriented X3, CN II-XII intact Psychiatric exam: Present: depressed, flat affect Skin exam: Present: warm, dry, intact, normal color. Absent: rash <Bob Gillette - Last Filed: 04/05/20 22:54> Course Vital Signs 04/04/20 04/04/20 11:31 16:23 Temperature 99.1 F Pulse Rate 55 L 86 Respiratory 19 20 Rate Blood Pressure 130/77 118/78 O2 Sat by Pulse 98 99 Oximetry Medical Decision Making <Isaac Chavez - Last Filed: 04/04/20 16:12> - Medical Decision Making Patient was given a steep plan and she was in agreement with the safety plan. Patient was no longer feeling suicidal at this time. (Isaac Chavez) - Lab Data Lab Results 04/04/20 Range/Units 14:03 Urine Opiates Screen Not Detected (NotDetected) Ur Oxycodone Screen Not Detected (NotDetected) Urine Methadone Screen Not Detected (NotDetected) Ur Propoxyphene Screen Not Detected (NotDetected) Ur Barbiturates Screen Not Detected (NotDetected) U Tricyclic Antidepress Not Detected (NotDetected) Ur Phencyclidine Scrn Not Detected (NotDetected) Ur Amphetamines Screen Not Detected (NotDetected) U Methamphetamines Scrn Not Detected (NotDetected) U Benzodiazepines Scrn Not Detected (NotDetected) Urine Cocaine Screen Not Detected (NotDetected) U Marijuana (THC) Screen Detected H (NotDetected) Disposition Is patient prescribed a controlled substance at d/c from ED?: No Time of Disposition: 16:13 <Isaac Chavez - Last Filed: 04/04/20 16:12> <Bob Gillette Last Filed: 04/05/20 22:54> Clinical Impression: Depression Disposition: HOME SELF-CARE Condition: Good Referrals: None,Stated [Primary Care Provider] - 1-2 days
[2020-04-04 14:22] LABS: Amphetamine Screen,Urine Not Detected (NotDetected); Barbiturate Screen,Urine Not Detected (NotDetected); Benzodiazepines Screen,Urine Not Detected (NotDetected); Cocaine Screen,Urine Not Detected (NotDetected); Methadone Screen, Urine Not Detected (NotDetected); Opiate Screen,Urine Not Detected (NotDetected); Oxycodone Screen, Urine Not Detected (NotDetected); Phencyclidine Screen,Urine Not Detected (NotDetected); Tricyclic Antidepressant,Urine Not Detected (NotDetected); Urn Cannabinoid Scrn Detected (NotDetected)
[2020-04-04 16:24] VITALS: BP 118/78; PULSE 86; RESP 20
== END 2020-04-04 16:26 | disposition home or self-care (01) ==
LOC: EC 11:28
DX: F32.9 Major depressive disorder, single episode, unspecified (principal); F17.200 Nicotine dependence, unspecified, uncomplicated
CPT/HCPCS: 80306; 82075; 99285

== ENCOUNTER 2020-11-25 09:05 | Emergency (ER) | payer OTHER ==
[2020-11-25 09:10] VITALS: RESP 18; TEMP 98.4
--- NOTE | 2020-11-25 10:02 | ED ---
URI HPI - General Chief Complaint: Upper Respiratory Infection Stated Complaint: congestion Time Seen by Provider: 11/25/20 09:13 Source: patient, RN notes reviewed Mode of arrival: ambulatory Limitations: no limitations - History of Present Illness Initial Comments: Patient is a 25-year-old female that presents to emergency department complaining of upper respiratory tract symptoms for the past several days. She notes she is 37 weeks . She notes that her other child recently tested positive for RSV so she came in today to get tested for that. She notes she has not taken any Tylenol or Motrin if she denied any fevers. She notes that she is wants the swab to see if she does have RSV at this time. She was otherwise well-appearing in no apparent distress or pain. She denied any chest pain headache nausea vomiting diarrhea constipation fever fatigue chills. She denied any abdominal cramping and vaginal bleeding or spotting. - Related Data Home Medications Medication Instructions Recorded Confirmed No Known Home Medications 11/25/20 11/25/20 Allergies Allergy/AdvReac Type Severity Reaction Status Date / Time No Known Allergies Allergy Verified 11/25/20 09:57 Review of Systems ROS Statement: Those systems with pertinent positive or pertinent negative responses have been documented in the HPI. ROS Other: All systems not noted in ROS Statement are negative. Past Medical History Past Medical History: No Reported History Additional Past Medical History / Comment(s): left wrist fracture History of Any Multi-Drug Resistant Organisms: None Reported Past Surgical History: No Surgical Hx Reported Past Anesthesia/Blood Transfusion Reactions: No Reported Reaction Past Psychological History: Anxiety, Depression Smoking Status: Never smoker Past Alcohol Use History: None Reported Past Drug Use History: None Reported - Past Family History Mother Family Medical History: No Reported History General Exam Limitations: no limitations General appearance: alert, in no apparent distress Head exam: Present: atraumatic, normocephalic, normal inspection Eye exam: Present: normal appearance, PERRL, EOMI. Absent: scleral icterus, conjunctival injection, periorbital swelling ENT exam: Present: normal exam, mucous membranes moist Neck exam: Present: normal inspection, full ROM. Absent: lymphadenopathy, thyromegaly Respiratory exam: Present: normal lung sounds bilaterally. Absent: respiratory distress, wheezes, rales, rhonchi, stridor Cardiovascular Exam: Present: regular rate, normal rhythm, normal heart sounds. Absent: systolic murmur, diastolic murmur, rubs, gallop, clicks Extremities exam: Present: normal inspection, full ROM, normal capillary refill. Absent: tenderness, pedal edema, joint swelling, calf tenderness Neurological exam: Present: alert, oriented X3 Psychiatric exam: Present: normal affect, normal mood Skin exam: Present: warm, dry, intact, normal color. Absent: rash Course Vital Signs 11/25/20 09:07 Temperature 98.4 F Pulse Rate 113 H Respiratory 18 Rate Blood Pressure 112/83 O2 Sat by Pulse 98 Oximetry Medical Decision Making - Medical Decision Making 25-year-old female complaining of upper respiratory tract symptoms been exposed to RSV. Cepheid 4 Plex ordered. Cepheid 4 Plex negative. Patient's vital signs are stable condition discharge home. Case discussed with Dr. Alcocer, patient can discharge home. - Lab Data Lab Results 11/25/20 Range/Units 09:20 Influenza Type A (PCR) Not Detected (Not Detectd) Influenza Type B (PCR) Not Detected (Not Detectd) RSV (PCR) Not Detected (Not Detectd) SARS-CoV-2 (PCR) Not Detected (Not Detectd) Disposition Clinical Impression: Upper respiratory tract infection Disposition: HOME SELF-CARE Condition: Stable Instructions (If sedation given, give patient instructions): Upper Respiratory Infection (ED) Additional Instructions: Please return to the Emergency Department if symptoms worsen or any other concerns. Take [id number] cough medicine as needed. Take Tylenol as needed for fevers. Follow-up with primary care 1 today's. Is patient prescribed a controlled substance at d/c from ED?: No Referrals: None,Stated [Primary Care Provider] - 1-2 days Time of Disposition: 11:09
[2020-11-25 11:18] VITALS: BP 121/89; PULSE 94
== END 2020-11-25 11:18 | disposition home or self-care (01) ==
LOC: EC 09:05
DX: O99.513 Diseases of the respiratory system complicating pregnancy, third trimester (principal); J06.9 Acute upper respiratory infection, unspecified; Z3A.37 37 weeks gestation of pregnancy; F41.9 Anxiety disorder, unspecified; F32.9 Major depressive disorder, single episode, unspecified
CPT/HCPCS: 87636; 99283

== ENCOUNTER 2020-12-14 06:00 | Inpatient (IN) | payer OTHER ==
[2020-12-14] MEDS ORDERED: CARBOPROST TROMETHAMINE 250 MCG/ML 1 ML AMP IM PRN (06:23)
[2020-12-14] MEDS ORDERED: LIDOCAINE 0.5% (PF) 5 MG/ML (50 ML SDV) SQ PRN (06:23)
[2020-12-14] MEDS ORDERED: METHYLERGONOVINE 0.2 MG/ML 1 ML AMP IM PRN (06:23)
[2020-12-14] MEDS ORDERED: TERBUTALINE 1 MG/ML VIAL SQ PRN (06:23)
[2020-12-14] MEDS ORDERED: OXYTOCIN 10 UNIT/ML 1 ML VIAL IM PRN (06:23)
[2020-12-14] MEDS ORDERED: OXYTOCIN 30 UNITS/500 ML NS 30 UNIT in SALINE 1 500ML.BAG IV SCH (06:30)
[2020-12-14] MEDS ORDERED: LACTATED RINGERS 1,000 ML IV SCH ×2 (06:30)
[2020-12-14 07:45] LABS: Basophils % (A) 1 %; Eosinophils # (A) 0.1 k/uL (0-0.7); Eosinophils % (A) 3 %; HCT 30.9 % (34.0-46.0); HGB 10.8 gm/dL (11.4-16.0); Lymphocytes # (A) 1.4 k/uL (1.0-4.8); Lymphocytes % (A) 29 %; MCH 31.1 pg (25.0-35.0); Monocytes # (A) 0.3 k/uL (0-1.0); Monocytes % (A) 6 %; Neutrophils # (A) 2.9 k/uL (1.3-7.7); Neutrophils % (A) 59 %; Platelet Count 113 k/uL (150-450); RBC 3.47 m/uL (3.80-5.40); WBC 4.9 k/uL (3.8-10.6)
--- NOTE | 2020-12-14 08:39 | P.HPOB ---
History of Present Illness H&P Date: 12/14/20 Chief Complaint: IUP at 39 and 6/7 weeks This is a 25-year-old that presents to labor and delivery for induction of labor. Patient has been receiving routine care which been essentially uncomplicated. Patient does have a significant history of anxiety and depression which is been controlled throughout the . Patient notes good movement, occ ctx, no VB, LOF On bloodwork this patient is a blood type of O+, rubella status immune, hepatitis B surface antigen negative, HIV negative, RPR nonreactive, group beta strep cultures negative. I Review of Systems Constitutional: Denies fatigue, Denies fever Ears, nose, mouth and throat: Denies headache Cardiovascular: Reports leg edema Respiratory: Denies dyspnea Gastrointestinal: Denies nausea, Denies vomiting Genitourinary: Reports Past Medical History Past Medical History: No Reported History Additional Past Medical History / Comment(s): left wrist fracture History of Any Multi-Drug Resistant Organisms: None Reported Past Surgical History: No Surgical Hx Reported Past Anesthesia/Blood Transfusion Reactions: No Reported Reaction Past Psychological History: Anxiety, Depression Smoking Status: Never smoker Past Alcohol Use History: None Reported Past Drug Use History: None Reported Additional Drug Use History / Comment(s): states she quit marijuana with - Past Family History Mother Family Medical History: No Reported History Medications and Allergies Home Medications Medication Instructions Recorded Confirmed Type Pnv,Calcium 72/Iron/Folic Acid 1 each PO DAILY 12/14/20 12/14/20 History [ Plus Tablet] Allergies Allergy/AdvReac Type Severity Reaction Status Date / Time No Known Allergies Allergy Verified 12/14/20 06:22 Exam Osteopathic Statement: *. No significant issues noted on an osteopathic structural exam other than those noted in the History and Physical/Consult. 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 heart tones noted be category 1 and she is jammie every 3 minutes. Results Result Diagrams: 12/14/20 06:35 Abnormal Lab Results - Last 24 Hours (Table) 12/14/20 Range/Units 06:35 RBC 3.47 L (3.80-5.40) m/uL Hgb 10.8 L (11.4-16.0) gm/dL Hct 30.9 L (34.0-46.0) % Assessment and Plan (1) Term Current Visit: No Status: Acute Code(s): Z34.90 - ENCNTR FOR SUPRVSN OF NORMAL , UNSP, UNSP TRIMESTER SNOMED Code(s): 32533777 Plan: This 25-year-old 003 at 39-6/7 weeks that presents to labor and delivery for induction of labor. Patient is admitted and Pitocin induction of labor is begun per hospital protocol. Options for analgesia discussed including Stadol and epidural. Patient will consider. Anticipate spontaneous vaginal delivery later today.
[2020-12-14 09:12] LABS: Large Platelets Present
[2020-12-14] MEDS ORDERED: BUTORPHANOL 1 MG/ML 1 ML VIAL IV PRN (10:28)
[2020-12-14] MEDS ORDERED: BENZOCAINE/MENTHOL SPRAY 1 GM/SPRAY AEROSOL TOPICAL PRN (11:19)
[2020-12-14] MEDS ORDERED: diphenhydrAMINE 50 MG CAP PO PRN (11:19)
[2020-12-14] MEDS ORDERED: ZOLPIDEM 5 MG TAB PO PRN (11:19)
[2020-12-14] MEDS ORDERED: diphenhydrAMINE 50 MG/ML 1 ML VIAL IVP PRN ×2 (11:19)
[2020-12-14] MEDS ORDERED: diphenhydrAMINE 25 MG CAP PO PRN (11:19)
[2020-12-14] MEDS ORDERED: SIMETHICONE 80 MG CHEWABLE PO PRN (11:19)
[2020-12-14] MEDS ORDERED: ACETAMINOPHEN TAB 325 MG TAB PO PRN (11:19)
[2020-12-14] MEDS ORDERED: HYDROCORTISONE 2.5% RECTAL CREAM 30 GM TUBE RECTAL PRN (11:19)
[2020-12-14] MEDS ORDERED: LANOLIN CREAM 5 GM TUBE TOPICAL PRN (11:19)
--- NOTE | 2020-12-14 11:22 | P.PROBDLV ---
Vaginal Delivery Note - . Vaginal Delivery Note: This is a 25-year-old 003 at 39-6/7 weeks that presented to labor and delivery for induction of labor. Patient was admitted to labor and delivery and Pitocin induction of labor was begun. Patient underwent amniotomy and clear fluid was obtained. Patient progressed in labor eventually requesting 1 dose of Stadol. Patient progressed quickly to complete and had a normal spontaneous vaginal delivery of a viable female infant at 1103, weight of 8 lbs. 0 oz. and Apgars of 8 and 9 at one and 5 minutes respectively. After two-minute delay the umbilical cord was doubly clamped and cut the placenta was delivered spontaneous intact with a three-vessel cord. On inspection the patient's vaginal vault no vaginal lacerations were appreciated. The bladder was drained for approximately 100 mL of clear yellow urine. A moderate lochia was appreciated therefore manual extraction revealed scant membranes with approximately 2 lemon-sized clots. Uterus was then noted to be firm and below the umbilicus. All counts were noted to be correct 2. Patient and infant tolerated delivery well and are resting comfortably.
[2020-12-14] MEDS: IBUPROFEN 600 MG TAB PO PRN ×2 (11:44→19:38)
[2020-12-14] MEDS: SENNOSIDES-DOCUSATE SODIUM 1 EACH TAB PO SCH (19:38)
[2020-12-15] MEDS: IBUPROFEN 600 MG TAB PO PRN (05:31)
[2020-12-15] MEDS: SENNOSIDES-DOCUSATE SODIUM 1 EACH TAB PO SCH (08:58)
[2020-12-15 09:16] VITALS: BP 119/71; PULSE 94; RESP 18; TEMP 99.5
--- NOTE | 2020-12-15 09:22 | P.DS ---
Providers Date of admission: 12/14/20 06:00 Expected date of discharge: 12/15/20 Attending physician: Cindy Alberts Primary care physician: Stated None - Discharge Diagnosis(es) (1) Term Current Visit: No Status: Acute (2) Status post normal vaginal delivery Current Visit: No Status: Acute Hospital Course: This is a 25-year-old 4 now para 3 that presented to labor and delivery at 39-6/7 weeks for induction of labor. Patient was admitted Pitocin induction of labor was begun per hospital protocol. Patient underwent amniotomy and clear fluid was obtained. Patient progressed quickly through labor she did receive 1 dose of Stadol. Patient progressed to complete had a normal spontaneous vaginal delivery of a viable female infant at 1103, weight of 8 lbs. 0 oz. Patient did not sustain any vaginal lacerations during delivery. Patient has done well . On this postoperative day #1 she is ambulating and voiding without difficulty. She is tolerating a regular diet without nausea or vomiting. States her pain is well-controlled with oral pain medication. She would like discharge home. Patient Condition at Discharge: Good Plan - Discharge Summary New Discharge Prescriptions: No Action Pnv,Calcium 72/Iron/Folic Acid [ Plus Tablet] 1 each PO DAILY Discharge Medication List Pnv,Calcium 72/Iron/Folic Acid [ Plus Tablet] 1 each PO DAILY 12/14/20 [History] Follow up Appointment(s)/Referral(s): Cindy Alberts DO [Doctor of Osteopathic Medicine] - 4 Weeks Patient Instructions/Handouts: Vaginal Delivery (GEN), Vaginal Delivery (DC) Discharge Disposition: HOME SELF-CARE
== END 2020-12-15 13:05 | disposition home or self-care (01) | DRG 807 ==
LOC: 4FBP 06:00
PROVIDERS: ADMIT Obstetrics & Gynecology Obstetrics; ATTEND Obstetrics & Gynecology Obstetrics
PROC: 10907ZC Drainage of Amniotic Fluid, Therapeutic from Products of Conception, Via Natural or Artificial Opening (ICD-10-PCS; principal; 2020-12-14)
PROC: 3E033VJ Introduction of Other Hormone into Peripheral Vein, Percutaneous Approach (ICD-10-PCS; principal; 2020-12-14)
PROC: 10E0XZZ Delivery of Products of Conception, External Approach (ICD-10-PCS; principal; 2020-12-14)
DX: O80 Encounter for full-term uncomplicated delivery (principal); Z37.0 Single live birth; Z3A.39 39 weeks gestation of pregnancy; Z79.899 Other long term (current) drug therapy; Z87.81 Personal history of (healed) traumatic fracture; Z86.59 Personal history of other mental and behavioral disorders
CPT/HCPCS: 85025; 86850; 86900; 86901

== ENCOUNTER 2021-03-22 14:55 | Emergency (ER) | payer OTHER ==
[2021-03-22 15:34] VITALS: BP 116/63; PULSE 86; RESP 18; TEMP 98.3
--- NOTE | 2021-03-22 16:30 | ED ---
General Adult HPI - General Chief complaint: Recheck/Abnormal Lab/Rx Stated complaint: Covid exposure/symptoms Source: patient Mode of arrival: ambulatory Limitations: no limitations - History of Present Illness Initial comments: 26-year-old female presents emergency department and requested covid testing. States that she was exposed and has missed work for the past 3 days. Her work is requesting a Covid test in order for her to return. Reports that her daughter has been sick with nasal congestion and fevers. Patient herself denies any symptoms. - Related Data Home Medications Medication Instructions Recorded Confirmed Pnv,Calcium 72/Iron/Folic Acid 1 each PO DAILY 12/14/20 12/14/20 [ Plus Tablet] Allergies Allergy/AdvReac Type Severity Reaction Status Date / Time No Known Allergies Allergy Verified 03/22/21 15:34 Review of Systems ROS Statement: Those systems with pertinent positive or pertinent negative responses have been documented in the HPI. ROS Other: All systems not noted in ROS Statement are negative. Past Medical History Past Medical History: No Reported History Additional Past Medical History / Comment(s): left wrist fracture History of Any Multi-Drug Resistant Organisms: None Reported Past Surgical History: No Surgical Hx Reported Past Anesthesia/Blood Transfusion Reactions: No Reported Reaction Past Psychological History: Anxiety, Depression Smoking Status: Never smoker Past Alcohol Use History: None Reported Past Drug Use History: None Reported - Past Family History Mother Family Medical History: No Reported History General Exam Limitations: no limitations Course Vital Signs 03/22/21 15:29 Temperature 98.3 F Pulse Rate 86 Respiratory 18 Rate Blood Pressure 116/63 O2 Sat by Pulse 98 Oximetry Medical Decision Making - Medical Decision Making Upon arrival patient was placed into room 33. Patient covid is negative. Patient will be discharged home with copies of her paperwork. Instructed to return for any new or worsening symptoms. Patient will need retesting if she does develop symptoms - Lab Data Lab Results 03/22/21 Range/Units 15:39 Coronavirus (PCR) Not Detected (Not Detectd) Disposition Clinical Impression: Exposure to COVID-19 virus Disposition: HOME SELF-CARE Condition: Stable Instructions (If sedation given, give patient instructions): Normal Exam (ED) Additional Instructions: Please follow up with your PCP in 2-4 days. Return to the ED for any new or worsening symptoms. Is patient prescribed a controlled substance at d/c from ED?: No Referrals: None,Stated [Primary Care Provider] - 1-2 days Time of Disposition: 16:29
== END 2021-03-22 17:59 | disposition home or self-care (01) ==
LOC: EC 14:55
DX: Z20.822 Contact with and (suspected) exposure to COVID-19 (principal); F41.9 Anxiety disorder, unspecified; F32.A Depression, unspecified
CPT/HCPCS: 87635; 99282

== ENCOUNTER 2021-04-21 11:26 | Emergency (ER) | payer OTHER ==
[2021-04-21 11:34] VITALS: TEMP 97.7
[2021-04-21 12:10] LABS: Appearance,Urine Cloudy (Clear); Bacteria,Urine Rare /hpf; Bilirubin,Urine Negative (Negative); Blood,Urine Large (Negative); Color,Urine Yellow; Glucose,Urine (UA) Negative (Negative); Ketones,Urine Negative (Negative); Leukocyte Esterase,Urine Moderate (Negative); Mucus,Urine Rare /hpf; Nitrite,Urine Negative (Negative); PH, Urine 7.5 (5.0-8.0); Protein,Urine 1+ (Negative); RBC,Urine 1 /hpf (0-5); Specific Gravity,Urine 1.017 (1.001-1.035); Squamous Epithelial Cell,Urine 19 /hpf (0-4); Urobilinogen,Urine <2.0 mg/dL (<2.0); WBC,Urine 22 /hpf (0-5)
[2021-04-21] MEDS ORDERED: SODIUM CHLORIDE 0.9% 1,000 ML IV STA (12:27)
--- NOTE | 2021-04-21 12:35 | ED ---
General Adult HPI - General Chief complaint: Vaginal Bleeding Stated complaint: wants test Time Seen by Provider: 04/21/21 11:51 Source: patient Mode of arrival: ambulatory Limitations: no limitations - History of Present Illness Initial comments: This female presents emergency department with vaginal bleeding and cramping 3 days. Patient states she had her fourth child through vaginal delivery on December 14. She states she had "normal bleeding for a few weeks which resolved in January." She states she believes she had her first menstrual cycle at the end of February that ended on March 05. Since March 05 she has not had any vaginal bleeding until 3 days ago. Patient states she did have a positive test yesterday. She states she has been having some vaginal bleeding/spotting with a couple with clots the size of a nickel that were passed yesterday. Since yesterday she has still been experiencing some vaginal bleeding/spotting. She denies any chest pain, shortness of breath, abdominal pain, nausea, vomiting, dizziness, lightheadedness, headache, change in bowel or bladder. - Related Data Home Medications Medication Instructions Recorded Confirmed Pnv,Calcium 72/Iron/Folic Acid 1 each PO DAILY 12/14/20 12/14/20 [ Plus Tablet] Allergies Allergy/AdvReac Type Severity Reaction Status Date / Time No Known Allergies Allergy Verified 04/21/21 11:34 Review of Systems ROS Statement: Those systems with pertinent positive or pertinent negative responses have been documented in the HPI. ROS Other: All systems not noted in ROS Statement are negative. Past Medical History Past Medical History: No Reported History Additional Past Medical History / Comment(s): left wrist fracture History of Any Multi-Drug Resistant Organisms: None Reported Past Surgical History: No Surgical Hx Reported Past Anesthesia/Blood Transfusion Reactions: No Reported Reaction Past Psychological History: Anxiety, Depression Smoking Status: Never smoker Past Alcohol Use History: None Reported Past Drug Use History: None Reported - Past Family History Mother Family Medical History: No Reported History General Exam Limitations: no limitations General appearance: alert, in no apparent distress Head exam: Present: atraumatic, normocephalic Eye exam: Present: normal appearance, PERRL, EOMI Pupils: Present: normal accommodation ENT exam: Present: mucous membranes moist Neck exam: Present: full ROM Respiratory exam: Present: normal lung sounds bilaterally. Absent: respiratory distress, wheezes, rales, rhonchi, stridor Cardiovascular Exam: Present: regular rate, normal rhythm, normal heart sounds. Absent: systolic murmur, diastolic murmur, rubs, gallop, clicks GI/Abdominal exam: Present: soft, tenderness (Mild tenderness to palpation of left lower quadrant), normal bowel sounds. Absent: distended, guarding, rebound, rigid Speculum exam: Present: other (Patient refused pelvic exam and said she will follow-up with her OB for this) Extremities exam: Present: normal inspection, full ROM, normal capillary refill. Absent: tenderness, pedal edema, joint swelling, calf tenderness Back exam: Present: normal inspection, full ROM. Absent: tenderness, CVA tenderness (R), CVA tenderness (L), paraspinal tenderness, vertebral tenderness Neurological exam: Present: alert, oriented X3, CN II-XII intact Psychiatric exam: Present: normal affect, normal mood Skin exam: Present: warm, dry, intact, normal color. Absent: rash Course Vital Signs 04/21/21 04/21/21 11:30 11:35 Temperature 97.7 F Pulse Rate 88 75 Respiratory 18 18 Rate Blood Pressure 111/67 118/72 O2 Sat by Pulse 99 97 Oximetry Medical Decision Making - Medical Decision Making This 26-year-old female presents emergency Department with a positive test and vaginal bleeding 3 days. Patient refused pelvic exam. ultrasound impression of single viable intrauterine as described above. Relatively small gestational sac. Heart rate 128 bpm. Labs unremarkable. Quantitative hCG 3885.5. Urine with 19 squamous epithelial cells, +1 protein, large blood. Patient denies any urinary symptoms. Discussed possible miscarriage with patient and the origins of repeat quantitative hCG in 48 hours. Prescription given prescription for quantitative serum hCG in 48 hours. Patient to follow-up with ART SUPERVISOR in 48 hours. Return precautions were discussed. Patient verbally agreed to plan. Patient sent home in stable condition. Case discussed with my attending, Dr. Sylvester - Lab Data Result diagrams: 04/21/21 12:40 04/21/21 12:40 Lab Results 04/21/21 04/21/21 04/21/21 Range/Units 11:41 11:41 12:40 WBC (3.8-10.6) k/uL RBC (3.80-5.40) m/uL Hgb (11.4-16.0) gm/dL Hct (34.0-46.0) % MCV (80.0-100.0) fL MCH (25.0-35.0) pg MCHC (31.0-37.0) g/dL RDW (11.5-15.5) % Plt Count (150-450) k/uL MPV Neutrophils % % Lymphocytes % % Monocytes % % Eosinophils % % Basophils % % Neutrophils # (1.3-7.7) k/uL Lymphocytes # (1.0-4.8) k/uL Monocytes # (0-1.0) k/uL Eosinophils # (0-0.7) k/uL Basophils # (0-0.2) k/uL Sodium 137 (137-145) mmol/L Potassium 4.1 (3.5-5.1) mmol/L Chloride 107 (98-107) mmol/L Carbon Dioxide 25 (22-30) mmol/L Anion Gap 5 mmol/L BUN 11 (7-17) mg/dL Creatinine 0.59 (0.52-1.04) mg/dL Est GFR (CKD-EPI)AfAm >90 (>60 ml/min/1.73 sqM) Est GFR (CKD-EPI)NonAf >90 (>60 ml/min/1.73 sqM) Glucose 89 (74-99) mg/dL Plasma Lactic Acid Matt (0.7-2.0) mmol/L Calcium 9.2 (8.4-10.2) mg/dL Total Bilirubin 0.4 (0.2-1.3) mg/dL AST 28 (14-36) U/L ALT 31 (4-34) U/L Alkaline Phosphatase 43 (38-126) U/L Total Protein 7.3 (6.3-8.2) g/dL Albumin 4.3 (3.5-5.0) g/dL Lipase 52 (23-300) U/L HCG, Quant 3885.5 mIU/mL Urine Color Yellow Urine Appearance Cloudy H (Clear) Urine pH 7.5 (5.0-8.0) Ur Specific Rudd 1.017 (1.001-1.035) Urine Protein 1+ H (Negative) Urine Glucose (UA) Negative (Negative) Urine Ketones Negative (Negative) Urine Blood Large H (Negative) Urine Nitrite Negative (Negative) Urine Bilirubin Negative (Negative) Urine Urobilinogen <2.0 (<2.0) mg/dL Ur Leukocyte Esterase Moderate H (Negative) Urine RBC 1 (0-5) /hpf Urine WBC 22 H (0-5) /hpf Ur Squamous Epith Cells 19 H (0-4) /hpf Urine Bacteria Rare H (None) /hpf Urine Mucus Rare H (None) /hpf Urine HCG, Qual Detected (Not Detectd) 04/21/21 04/21/21 Range/Units 12:40 12:40 WBC 4.3 (3.8-10.6) k/uL RBC 4.34 (3.80-5.40) m/uL Hgb 12.7 (11.4-16.0) gm/dL Hct 38.9 (34.0-46.0) % MCV 89.7 (80.0-100.0) fL MCH 29.3 (25.0-35.0) pg MCHC 32.7 (31.0-37.0) g/dL RDW 13.8 (11.5-15.5) % Plt Count 145 L (150-450) k/uL MPV 10.8 Neutrophils % 61 % Lymphocytes % 31 % Monocytes % 5 % Eosinophils % 1 % Basophils % 1 % Neutrophils # 2.6 (1.3-7.7) k/uL Lymphocytes # 1.3 (1.0-4.8) k/uL Monocytes # 0.2 (0-1.0) k/uL Eosinophils # 0.1 (0-0.7) k/uL Basophils # 0.0 (0-0.2) k/uL Sodium (137-145) mmol/L Potassium (3.5-5.1) mmol/L Chloride (98-107) mmol/L Carbon Dioxide (22-30) mmol/L Anion Gap mmol/L BUN (7-17) mg/dL Creatinine (0.52-1.04) mg/dL Est GFR (CKD-EPI)AfAm (>60 ml/min/1.73 sqM) Est GFR (CKD-EPI)NonAf (>60 ml/min/1.73 sqM) Glucose (74-99) mg/dL Plasma Lactic Acid Matt 0.7 (0.7-2.0) mmol/L Calcium (8.4-10.2) mg/dL Total Bilirubin (0.2-1.3) mg/dL AST (14-36) U/L ALT (4-34) U/L Alkaline Phosphatase (38-126) U/L Total Protein (6.3-8.2) g/dL Albumin (3.5-5.0) g/dL Lipase (23-300) U/L HCG, Quant mIU/mL Urine Color Urine Appearance (Clear) Urine pH (5.0-8.0) Ur Specific Rudd (1.001-1.035) Urine Protein (Negative) Urine Glucose (UA) (Negative) Urine Ketones (Negative) Urine Blood (Negative) Urine Nitrite (Negative) Urine Bilirubin (Negative) Urine Urobilinogen (<2.0) mg/dL Ur Leukocyte Esterase (Negative) Urine RBC (0-5) /hpf Urine WBC (0-5) /hpf Ur Squamous Epith Cells (0-4) /hpf Urine Bacteria (None) /hpf Urine Mucus (None) /hpf Urine HCG, Qual (Not Detectd) Disposition Clinical Impression: Vaginal bleeding in patient after first trimester, Threatened miscarriage in early Disposition: HOME SELF-CARE Condition: Stable Instructions (If sedation given, give patient instructions): Threatened Miscarriage (ED) Additional Instructions: Please return to the emergency department any new, worsening, or concerning symptoms. Please follow-up with OBGYN next 48 hours for repeat serum hCG. Is patient prescribed a controlled substance at d/c from ED?: No Referrals: Cindy Alberts DO [Primary Care Provider] - 1-2 days Sacha Medeiros MD [STAFF PHYSICIAN] - 1-2 days Vanessa Chavez DO [Doctor of Osteopathic Medicine] - 1-2 days Time of Disposition: 14:29
[2021-04-21 12:48] LABS: Basophils % (A) 1 %; Eosinophils # (A) 0.1 k/uL (0-0.7); Eosinophils % (A) 1 %; HCT 38.9 % (34.0-46.0); HGB 12.7 gm/dL (11.4-16.0); Lymphocytes # (A) 1.3 k/uL (1.0-4.8); Lymphocytes % (A) 31 %; MCH 29.3 pg (25.0-35.0); MCHC 32.7 g/dL (31.0-37.0); MCV 89.7 fL (80.0-100.0); Mean Platelet Volume 10.8; Monocytes # (A) 0.2 k/uL (0-1.0); Monocytes % (A) 5 %; Neutrophils # (A) 2.6 k/uL (1.3-7.7); Neutrophils % (A) 61 %; Platelet Count 145 k/uL (150-450); RBC 4.34 m/uL (3.80-5.40); RDW 13.8 % (11.5-15.5); WBC 4.3 k/uL (3.8-10.6)
[2021-04-21 13:05] LABS: ALT 31 U/L (4-34); AST 28 U/L (14-36); African American GFR (CKD) >90 (>60 ml/min/1.73 sqM); Albumin 4.3 g/dL (3.5-5.0); Alkaline Phosphatase 43 U/L (38-126); Anion Gap 5 mmol/L; Blood Urea Nitrogen 11 mg/dL (7-17); Calcium 9.2 mg/dL (8.4-10.2); Carbon Dioxide 25 mmol/L (22-30); Chloride 107 mmol/L (98-107); Glucose 89 mg/dL (74-99); Lipase 52 U/L (23-300); Non-African American GFR(CKD) >90 (>60 ml/min/1.73 sqM); Potassium 4.1 mmol/L (3.5-5.1); Sodium 137 mmol/L (137-145); Total Bilirubin 0.4 mg/dL (0.2-1.3); Total Protein 7.3 g/dL (6.3-8.2)
[2021-04-21 13:21] LABS: HCG,Quantitative Serum 3885.5 mIU/mL
--- NOTE | 2021-04-21 13:58 | US ---
EXAMINATION TYPE: Transabdominal DATE OF EXAM: 04/21/2021 1:16 PM COMPARISON: Ultrasound dated 01/11/2019 CLINICAL HISTORY: + preg, bleeding, LLQ tenderness. EXAM MEASUREMENTS: GESTATIONAL AGE / DATING Physician Established: Not yet established Dates by LMP: LMP unknown Dates by First Scan: No previous this is first scan Dates by Current Scan for: (6 weeks/1 days) EDC: 12-14-21 MATERNAL ANATOMY Uterus: 9.3 x 5.2 x 6.0cm Right Ovary: 2.6 x 1.9 x 1.9cm Left Ovary: wnl Post CDS / Adnexa: wnl Presence of free fluid: no GESTATION / SURVEY CRL: 0.4cm (6 weeks/1 days) MSD: 1.0 (too small to register weeks/days) Yolk Sac (normal less than 6mm): 2mm Heart Rate: 128 bpm Rhythm: Normal IUP: Viable IUP Date of LMP: Patient unsure Beta HcG (if available): Not available at this time *Gestational Sac measures small. IMPRESSION: Single viable intrauterine as described above. Relatively small gestational sac.
[2021-04-21 14:50] VITALS: BP 120/58; PULSE 98; RESP 16
== END 2021-04-21 14:50 | disposition home or self-care (01) ==
LOC: EC 11:26
DX: O20.0 Threatened abortion (principal); Z3A.00 Weeks of gestation of pregnancy not specified; F41.9 Anxiety disorder, unspecified; F32.A Depression, unspecified
CPT/HCPCS: 36415; 76801; 80053; 81001; 81025; 83605; 83690; 84702; 85025; 96360; 99284

== ENCOUNTER 2021-04-22 12:06 | Emergency (ER) | payer OTHER ==
--- NOTE | 2021-04-22 13:15 | ED ---
General Adult HPI - General Chief complaint: Abdominal Pain Stated complaint: Abd pain Time Seen by Provider: 04/22/21 12:27 Source: patient Mode of arrival: ambulatory Limitations: no limitations - History of Present Illness Initial comments: This 26-year-old female who is 6 weeks presents emergency department abdominal cramping and vaginal bleeding 3 days. Patient was seen here yesterday where she found out she was again after having a child in December 2020. Transabdominal ultrasound yesterday did visualize intrauterine with heartbeat present. Along with active vaginal bleeding for the last 3 days, patient states she passed a clot in the size of a quarter and is worried that she is miscarrying. Patient states she is also having intermittent abdominal cramping. Patient states she is bleeding like her usual menstrual cycle and states this would be when she is supposed to be on her menstrual cycle. A prescription for repeat quantitative beta serum hCG was given yesterday. Patient does have positive blood type. She denies any chest pain, lightheadedness, dizziness, shortness of breath, headache, change in vision, change in bowel or bladder, nausea, vomiting, hemoptysis. - Related Data Home Medications Medication Instructions Recorded Confirmed Acetaminophen Tab [Tylenol Tab] 1,000 mg PO Q6H PRN 04/22/21 04/22/21 Allergies Allergy/AdvReac Type Severity Reaction Status Date / Time No Known Allergies Allergy Verified 04/22/21 13:32 Review of Systems ROS Statement: Those systems with pertinent positive or pertinent negative responses have been documented in the HPI. ROS Other: All systems not noted in ROS Statement are negative. Past Medical History Past Medical History: No Reported History Additional Past Medical History / Comment(s): left wrist fracture History of Any Multi-Drug Resistant Organisms: None Reported Past Surgical History: No Surgical Hx Reported Past Anesthesia/Blood Transfusion Reactions: No Reported Reaction Past Psychological History: Anxiety, Depression Smoking Status: Never smoker Past Alcohol Use History: None Reported Past Drug Use History: None Reported - Past Family History Mother Family Medical History: No Reported History General Exam Limitations: no limitations General appearance: alert, in no apparent distress Head exam: Present: atraumatic, normocephalic, normal inspection Eye exam: Present: normal appearance, PERRL, EOMI Pupils: Present: normal accommodation ENT exam: Present: mucous membranes moist Neck exam: Present: full ROM Respiratory exam: Present: normal lung sounds bilaterally. Absent: respiratory distress, wheezes, rales, rhonchi, stridor Cardiovascular Exam: Present: regular rate, normal rhythm, normal heart sounds. Absent: systolic murmur, diastolic murmur, rubs, gallop, clicks GI/Abdominal exam: Present: soft, tenderness (Mild tenderness to palpation in between left lower and right lower quadrant, below umbilicus in the center of her abdomen (supra pubic region)), normal bowel sounds. Absent: distended, guarding, rebound, rigid Speculum exam: Present: other (Patient refused pelvic exam and states she wants to follow up with her COUNTING MACHINE OPERATOR on Saturday) Extremities exam: Present: full ROM Back exam: Present: normal inspection, full ROM. Absent: tenderness, CVA tenderness (R), CVA tenderness (L), paraspinal tenderness, vertebral tenderness Neurological exam: Present: alert, oriented X3, CN II-XII intact Psychiatric exam: Present: normal affect, normal mood Skin exam: Present: warm, dry, intact, normal color. Absent: rash Course Vital Signs 04/22/21 04/22/21 12:11 14:34 Temperature 98.1 F 98.0 F Pulse Rate 80 78 Respiratory 20 18 Rate Blood Pressure 101/66 106/70 O2 Sat by Pulse 100 100 Oximetry Medical Decision Making - Medical Decision Making This 26-year-old female presents emergency department actively miscarrying. Yesterday's transabdominal ultrasound did show a 6 week intrauterine with a heartbeat present. Transabdominal ultrasound today did not see an intrauterine present. Impression showed compared to ultrasound performed yesterday, no intrauterine gestational sac is seen on today's study. Echogenic material within the endometrial cavity likely reflective of blood products. Patient did refuse pelvic exam and states she wants to follow up with her COUNTING MACHINE OPERATOR on Saturday. Quantitative beta hCG prescription given yesterday and patient states she does still it. Patient was blood type O positive, no need for RhoGAM. Strict return precautions were discussed. Patient verbally agreed to plan. Patient sent home in stable condition. Case discussed with my attending, . Disposition Clinical Impression: Miscarriage Disposition: HOME SELF-CARE Condition: Stable Instructions (If sedation given, give patient instructions): Miscarriage (ED) Additional Instructions: Please follow up with her COUNTING MACHINE OPERATOR on Saturday. Please bring your repeat quantitative serum beta hCG prescription with you. Return to the emergency department with any new, worsening, or concerning symptoms. Take medication as directed. Is patient prescribed a controlled substance at d/c from ED?: No Referrals: Cindy Alberts DO [Primary Care Provider] - 1-2 days
--- NOTE | 2021-04-22 13:55 | US ---
EXAMINATION TYPE: Transabdominal DATE OF EXAM: 04/22/2021 1:27 PM COMPARISON: 04/21/2021 CLINICAL HISTORY: heart tones yest,+bleeding--recheck tones. Vaginal bleeding, patient states s he passed a large clot today. EXAM PERFORMED: Transabdominal (TA) EXAM MEASUREMENTS: GESTATIONAL AGE / DATING Dates by First Scan: (6 weeks/2 days) EDC: 12/14/2021 Uterus: 10.0 x 6.1 x 5.3 Right Ovary: 3.7 x 2.3 x 2.6 Left Ovary: 3.5 x 1.9 x 2.1 Presence of free fluid: none Presence of corpus luteal cyst: Possibly on the right side measuring 1.6 x 1.3 x 1.7cm GESTATION / SURVEY IUP: No IUP seen at this time Date of LMP: Patient unsure Beta HcG (if available): Not available at this time No IUP seen at this time, Thickened endometrium seen measuring 2.1cm IMPRESSION: Compared to the ultrasound performed yesterday, no intrauterine gestational sac is seen on today's [employer]. Echogenic material within the endometrial cavity likely reflective of blood products.
[2021-04-22] MEDS ORDERED: ACET/COD 300 MG/30 MG STARTER PACK 6 TAB BTL PO STA (14:21)
[2021-04-22 14:35] VITALS: BP 106/70; PULSE 78; RESP 18; TEMP 98
== END 2021-04-22 14:34 | disposition home or self-care (01) ==
LOC: EC 12:06
DX: O03.9 Complete or unspecified spontaneous abortion without complication (principal)
CPT/HCPCS: 76801; 99284

== ENCOUNTER 2022-02-20 09:48 | Emergency (ER) | payer OTHER ==
[2022-02-20] MEDS ORDERED: ACETAMINOPHEN TAB 325 MG TAB PO STA (10:25)
--- NOTE | 2022-02-20 10:27 | ED ---
URI HPI - General Chief Complaint: Upper Respiratory Infection Stated Complaint: dizziness, cough Time Seen by Provider: 02/20/22 10:18 Source: patient, RN notes reviewed, old records reviewed Mode of arrival: ambulatory Limitations: no limitations - History of Present Illness Initial Comments: Nontoxic-appearing 27 year female presents ambulatory with her 2 children all with similar illnesses. States she has had a cough, headache and congestion for the past 2 days. Patient states that she has no medical history, is a nonsmoker. MD Complaint: cough, nasal congestion, other (headache) -: days(s) (2) Quality: aching Consistency: constant Improves With: nothing Worsens With: nothing Context: sick contacts (both kids sick) Treatments Prior to Arrival: none - Related Data Home Medications Medication Instructions Recorded Confirmed No Known Home Medications 02/20/22 02/20/22 Allergies Allergy/AdvReac Type Severity Reaction Status Date / Time No Known Allergies Allergy Verified 02/20/22 10:14 Review of Systems ROS Statement: Those systems with pertinent positive or pertinent negative responses have been documented in the HPI. ROS Other: All systems not noted in ROS Statement are negative. Past Medical History Past Medical History: No Reported History Additional Past Medical History / Comment(s): left wrist fracture History of Any Multi-Drug Resistant Organisms: None Reported Past Surgical History: No Surgical Hx Reported Past Anesthesia/Blood Transfusion Reactions: No Reported Reaction Past Psychological History: Anxiety, Depression Smoking Status: Never smoker Past Alcohol Use History: None Reported Past Drug Use History: None Reported - Past Family History Mother Family Medical History: No Reported History General Exam Limitations: no limitations General appearance: alert, in no apparent distress Head exam: Present: atraumatic Eye exam: Present: normal appearance. Absent: scleral icterus, conjunctival injection, periorbital swelling ENT exam: Present: normal oropharynx, mucous membranes moist Neck exam: Absent: tenderness, meningismus, lymphadenopathy Respiratory exam: Present: normal lung sounds bilaterally. Absent: respiratory distress, wheezes, rales, rhonchi, stridor, accessory muscle use Cardiovascular Exam: Present: tachycardia Extremities exam: Present: normal capillary refill Neurological exam: Present: alert, oriented X3, normal gait Psychiatric exam: Present: normal affect, normal mood Skin exam: Present: warm, normal color. Absent: cyanosis, diaphoretic, petechiae, pallor Course Vital Signs 02/20/22 02/20/22 10:11 11:55 Temperature 100.6 F H 99.0 F Pulse Rate 128 H 92 Respiratory 22 18 Rate Blood Pressure 120/72 131/78 O2 Sat by Pulse 97 98 Oximetry Medical Decision Making - Medical Decision Making Patient is nontoxic appearing. Tolerating fluids. Ambulating in the room the steady gait. Her 2 children are also sick with similar illnesses. Patient was given Tylenol for fever and discomfort. Lungs sounds are clear to auscultation. Vital signs are stable She is influenza A+. She was instructed to continue Tylenol and Motrin for any discomfort. Increase her fluid intake. Return to the emergency room with a new or concerning symptoms. Case discussed with Dr. Alcocer - Lab Data Lab Results 02/20/22 Range/Units 10:30 Influenza Type A (PCR) Detected A (Not Detectd) Influenza Type B (PCR) Not Detected (Not Detectd) RSV (PCR) Not Detected (Not Detectd) SARS-CoV-2 (PCR) Not Detected (Not Detectd) Disposition Clinical Impression: Influenza Disposition: HOME SELF-CARE Condition: Good Instructions (If sedation given, give patient instructions): Influenza (ED) Additional Instructions: Increase your fluid intake as this will help with your body aches. Tylenol and or Motrin as needed for body aches or fevers. Follow-up with your primary care doctor as needed. Is patient prescribed a controlled substance at d/c from ED?: No Referrals: Moira Smith MD [Primary Care Provider] - 1-2 days Time of Disposition: 11:47
[2022-02-20 11:55] VITALS: BP 131/78; PULSE 92; RESP 18; TEMP 99
== END 2022-02-20 11:55 | disposition home or self-care (01) ==
LOC: EC 09:48
DX: J10.1 Influenza due to other identified influenza virus with other respiratory manifestations (principal); F41.9 Anxiety disorder, unspecified; F32.A Depression, unspecified; Z20.822 Contact with and (suspected) exposure to COVID-19
CPT/HCPCS: 87636; 99284

== ENCOUNTER 2022-09-25 06:00 | Inpatient (IN) | payer OTHER ==
--- NOTE | 2022-09-24 16:57 | P.HPOB ---
History of Present Illness H&P Date: 09/24/22 Chief Complaint: Induction of labor This is a 27 y.o. female, 6, para 4, with an estimated date of confinement of 09/27/2022, estimated gestational age of 39-5/7 weeks, who presents for induction of labor. She complains of irregular contractions and pressure. course has been complicated by anxiety/depression. She is taking Buspar and is seeing a counselor. labs: [id number] Hemoglobin-12 Platelets, init. 132, 107 with glucola Blood type-O+ Antibody screen-neg Rubella-immune RPR-NR HIV-NR Hepatitis C-neg Random glucose-88 Hepatitis B surface antigen-neg Chlamydia-positive, CARLY-neg GC/Trich-neg GBS-neg OB Hx: . History of 4 vaginal deliveries at term. 1 miscarriage. Mangle Tender Hx: History of chlamydia treated during this ; Hx of GC/Chlamydia in the past. Social Hx: Single. Works part-time at [employer]. Review of Systems Constitutional: Denies chills, Denies fever Eyes: denies blurred vision, denies pain Ears, nose, mouth and throat: Denies headache, Denies sore throat Cardiovascular: Denies chest pain, Denies shortness of breath Respiratory: Denies cough Gastrointestinal: Reports abdominal pain (irregular contractions) Genitourinary: Reports pelvic pain, Reports Musculoskeletal: Reports low back pain, Denies myalgias Integumentary: Denies pruritus, Denies rash Neurological: Denies numbness, Denies weakness Psychiatric: Reports anxiety, Reports depression Past Medical History Past Medical History: No Reported History Additional Past Medical History / Comment(s): left wrist fracture History of Any Multi-Drug Resistant Organisms: None Reported Past Surgical History: No Surgical Hx Reported Past Anesthesia/Blood Transfusion Reactions: No Reported Reaction Past Psychological History: Anxiety, Depression Smoking Status: Vaper Past Alcohol Use History: None Reported Past Drug Use History: None Reported - Past Family History Mother Family Medical History: No Reported History Medications and Allergies Home Medications Medication Instructions Recorded Confirmed Type busPIRone HCl [Buspar] 5 mg PO BID 09/24/22 09/24/22 History Allergies Allergy/AdvReac Type Severity Reaction Status Date / Time No Known Allergies Allergy Verified 02/20/22 10:14 Exam Osteopathic Statement: *. No significant issues noted on an osteopathic structural exam other than those noted in the History and Physical/Consult. HEENT: within normal limits Heart: regular rate and rhythm Lungs: clear to auscultation bilaterally Abdomen: , non-tender Cervix: 2 cm/60%/-2 heart tones: 140's by doppler Extremities: neg. Harvey's Assessment and Plan (1) 39 weeks gestation of Status: Acute Code(s): Z3A.39 - 39 WEEKS GESTATION OF SNOMED Code(s): 56267799 Plan: Admission for oxytocin induction of labor. Expectant management.
[2022-09-25] MEDS ORDERED: OXYTOCIN 10 UNIT/ML 1 ML VIAL IM PRN (06:28)
[2022-09-25] MEDS ORDERED: LIDOCAINE 0.5% (PF) 5 MG/ML (50 ML SDV) SQ PRN (06:28)
[2022-09-25] MEDS ORDERED: METHYLERGONOVINE 0.2 MG/ML 1 ML AMP IM PRN (06:28)
[2022-09-25] MEDS ORDERED: LACTATED RINGERS 1,000 ML IV SCH (06:28)
[2022-09-25] MEDS ORDERED: miSOPROStoL 200 MCG TAB PO PRN (06:28)
[2022-09-25] MEDS ORDERED: LIDOCAINE 1% (10MG/ML) FOR IV START INTRADERMA PRN (06:28)
[2022-09-25] MEDS ORDERED: CARBOPROST TROMETHAMINE 250 MCG/ML 1 ML AMP IM PRN (06:28)
[2022-09-25] MEDS ORDERED: TERBUTALINE 1 MG/ML VIAL SQ PRN (06:28)
[2022-09-25] MEDS ORDERED: OXYTOCIN 30 UNITS/500 ML NS 30 UNIT in SALINE 1 500ML.BAG IV SCH (06:28)
[2022-09-25] MEDS ORDERED: TRANEXAMIC 1,000 MG/100ML-NACL 1,000 MG in EMPTY BAG 1 BAG IV PRN (06:28)
[2022-09-25 06:45] VITALS: RESP 16
[2022-09-25] MEDS: OXYTOCIN 30 UNITS/500 ML NS 30 UNIT in SALINE 1 500ML.BAG IV SCH ×2 (07:10→15:54)
[2022-09-25 07:43] LABS: Basophils % (A) 0 %; Eosinophils # (A) 0.1 k/uL (0-0.7); Eosinophils % (A) 1 %; HCT 34.5 % (34.0-46.0); HGB 11.9 gm/dL (11.4-16.0); Lymphocytes # (A) 1.9 k/uL (1.0-4.8); Lymphocytes % (A) 29 %; MCH 31.8 pg (25.0-35.0); MCHC 34.6 g/dL (31.0-37.0); MCV 91.9 fL (80.0-100.0); Mean Platelet Volume 12.4; Monocytes # (A) 0.4 k/uL (0-1.0); Monocytes % (A) 6 %; Neutrophils # (A) 4.2 k/uL (1.3-7.7); Neutrophils % (A) 63 %; RBC 3.76 m/uL (3.80-5.40); RDW 13.5 % (11.5-15.5); WBC 6.7 k/uL (3.8-10.6)
[2022-09-25 07:44] LABS: Platelet Count 115 k/uL (150-450)
[2022-09-25] MEDS ORDERED: NALBUPHINE 10 MG/ML (10 ML MDV) IV PRN (08:17)
[2022-09-25] MEDS: busPIRone HCl 5 MG TAB PO SCH ×2 (08:43→20:21)
--- NOTE | 2022-09-25 13:14 | P.PROBDLV ---
Vaginal Delivery Note - . Vaginal Delivery Note: The patient reached approximately 8 cm after oxytocin induction of labor and artificial rupture of membranes with clear fluid noted. She did receive 1 dose of Nubain while in labor. She began involuntarily pushing and then brought infant's head to a crown while I was able to push back the anterior lip of her cervix. Once baby's head came to a crown with one further push the 's head delivered across the perineum in a left occiput anterior lie. At this point the patient stopped pushing and I encouraged her to give 1 more push to get the anterior or right shoulder out. With one further push, the anterior shoulder did not deliver. She was placed in Kathy position and advised to try one more time to push and the anterior shoulder easily delivered. Nose and mouth were bulb suctioned and then the remainder the infant easily delivered and was placed on mother's abdomen. Cord was clamped and cut and was taken to warmer for evaluation. A viable male is noted with scores of 9 at 1 minute and 9 at 5 minutes and weight of 7 lbs. 12 oz. Next the placenta delivered shortly thereafter, intact, with a three-vessel cord. Uterus initially contracted fairly well after oxytocin was given and uterine massage was carried out but then became boggy. Her bladder was drained with a catheter and uterine massage was again carried out. A gloved hand was placed within the uterine cavity and clots were removed but no further placental tissue was palpated. Oxytocin was opened up and uterus did firm. Inspection of the perineum revealed no perineal lacerations. Estimated blood loss is approximately 300 mL's. Both mother and are in stable condition.
[2022-09-25] MEDS ORDERED: diphenhydrAMINE 25 MG CAP PO PRN (13:24)
[2022-09-25] MEDS ORDERED: diphenhydrAMINE 50 MG/ML 1 ML VIAL IVP PRN ×2 (13:24)
[2022-09-25] MEDS ORDERED: SIMETHICONE 80 MG CHEWABLE PO PRN (13:24)
[2022-09-25] MEDS ORDERED: BENZOCAINE/MENTHOL SPRAY 1 GM/SPRAY AEROSOL TOPICAL PRN (13:24)
[2022-09-25] MEDS ORDERED: HYDROCORTISONE 2.5% RECTAL CREAM 30 GM TUBE RECTAL PRN (13:24)
[2022-09-25] MEDS ORDERED: LANOLIN CREAM 5 GM TUBE TOPICAL PRN (13:24)
[2022-09-25] MEDS ORDERED: ZOLPIDEM 5 MG TAB PO PRN (13:24)
[2022-09-25] MEDS ORDERED: diphenhydrAMINE 50 MG CAP PO PRN (13:24)
[2022-09-25] MEDS: IBUPROFEN 600 MG TAB PO PRN ×2 (13:32→20:21)
[2022-09-25] MEDS: ACETAMINOPHEN TAB 325 MG TAB PO PRN ×2 (17:02→23:51)
[2022-09-25] MEDS: SENNOSIDES-DOCUSATE SODIUM 1 EACH TAB PO SCH (20:21)
[2022-09-26] MEDS: IBUPROFEN 600 MG TAB PO PRN (03:01)
[2022-09-26 07:44] VITALS: TEMP 98.4
[2022-09-26 07:56] LABS: HCT 32.4 % (34.0-46.0); HGB 11.3 gm/dL (11.4-16.0); MCH 32.4 pg (25.0-35.0); MCHC 34.8 g/dL (31.0-37.0); MCV 93.1 fL (80.0-100.0); Mean Platelet Volume 12.2; RBC 3.48 m/uL (3.80-5.40); RDW 13.6 % (11.5-15.5); WBC 8.1 k/uL (3.8-10.6)
[2022-09-26] MEDS: busPIRone HCl 5 MG TAB PO SCH (08:19)
[2022-09-26] MEDS: SENNOSIDES-DOCUSATE SODIUM 1 EACH TAB PO SCH (08:19)
--- NOTE | 2022-09-26 08:44 | P.DS ---
Providers Date of admission: 09/25/22 06:00 Expected date of discharge: 09/26/22 Attending physician: Vanessa Chavez Primary care physician: Stated None - Discharge Diagnosis(es) (1) 39 weeks gestation of Current Visit: No Status: Acute Hospital Course: This is a 27-year-old female 6 para 4 at 39-5/7 weeks who presented for induction of labor. She underwent oxytocin induction of labor and delivered vaginally a viable male on 09/25/2022 with a mild shoulder dystocia relieved by Kathy procedure and scores of 9 at 1 minute and 9 at 5 minutes and weight of 7 lbs. 12 oz. Her course has been uncomplicated. Lochia has been decreased. Her pain is fairly well controlled. She is breast-feeding. Vital signs are stable. Abdomen is soft with fundus firm and nontender. Extremities show negative Homans. Impression is status post vaginal delivery day #1. Plan is to discharge home today. Routine instructions are given. She will be given a prescription for ibuprofen. She is instructed to follow-up in the office in 6 weeks for check. She may call the office if she has any further questions or concerns prior to her appointment time. Procedures: Oxytocin induction of labor Spontaneous vaginal delivery of a viable male infant on 09/25/2022 Patient Condition at Discharge: Stable Plan - Discharge Summary New Discharge Prescriptions: New Ibuprofen [Motrin] 600 mg PO Q6HR PRN #60 tab PRN Reason: Mild Pain (Scale 1 To 3) Continue Vit No.179/Iron/Folic [ Tablet] 1 each PO DAILY busPIRone HCl [Buspar] 5 mg PO BID Discharge Medication List busPIRone HCl [Buspar] 5 mg PO BID 09/24/22 [History] Vit No.179/Iron/Folic [ Tablet] 1 each PO DAILY 09/25/22 [History] Ibuprofen [Motrin] 600 mg PO Q6HR PRN #60 tab 09/26/22 [Rx] Follow up Appointment(s)/Referral(s): Vanessa Chavez DO [Doctor of Osteopathic Medicine] - 6 Weeks Activity/Diet/Wound Care/Special Instructions: Instructions 1. Do not begin any exercise program for 3 weeks. 2. Do not resume sexual relations for 3 weeks or longer if uncomfortable. 3. You may take tub baths or showers at any time. 4. You may use tampons if desired after 3 weeks. 5. Keep the area of episiotomy (stitches) clean and dry. 6. If you are not nursing, wear a good fitting, supportive bra during the day and limit fluid intake for at least 1 week to prevent breast engorgement. 7. Call the office, [phone], within the next week to make appointment for your 6 week checkup if it has not already been made. 8. Report any of the following occurrences to the doctor promptly: a. Heavy, excessive bleeding b. Chills, fever c. Burning or frequency of urination d. Pain or redness and breasts if nursing e. Increasing pain or swelling in episiotomy (stitches). In addition to the above instructions, the following additional should be followed: 1. No heavy lifting or straining (exercising) until after 6 week checkup. 2. Keep abdominal incision clean and dry: You may wear a dressing if more comfortable. 3. Make office appointment for 10 days after going home or as instructed by her doctor. Discharge Disposition: HOME SELF-CARE
[2022-09-26 09:06] LABS: Eosinophils # (M) 0.24 k/uL (0-0.7); Large Platelets Present; Lymphocytes # (M) 0.97 k/uL (1.0-4.8); Monocytes # (M) 0.57 k/uL (0-1.0); Neutrophils # (M) 6.32 k/uL (1.3-7.7); Neutrophils % (M) 78 %; Nucleated Red Blood Cells 0 /100 WBC (0-0); Platelet Count 113 k/uL (150-450); Total Cells Counted 100
[2022-09-26 09:07] LABS: RBC Morphology Normal
[2022-09-26 12:05] VITALS: BP 103/64; PULSE 74
[2022-09-26] MEDS: ACETAMINOPHEN TAB 325 MG TAB PO PRN (14:15)
== END 2022-09-26 11:30 | disposition home or self-care (01) | DRG 560 ==
LOC: 4FBP 06:00
PROVIDERS: ADMIT Obstetrics & Gynecology; ATTEND Obstetrics & Gynecology
PROC: 10E0XZZ Delivery of Products of Conception, External Approach (ICD-10-PCS; principal; 2022-09-25)
DX: O99.344 Other mental disorders complicating childbirth (principal); F41.9 Anxiety disorder, unspecified; F32.A Depression, unspecified; Z37.0 Single live birth; Z3A.39 39 weeks gestation of pregnancy; Z79.899 Other long term (current) drug therapy
CPT/HCPCS: 85025; 86850; 86900; 86901

== ENCOUNTER 2022-12-26 13:12 | Emergency (ER) | payer OTHER ==
[2022-12-26 13:51] VITALS: BP 126/72; PULSE 98; RESP 18; TEMP 98.4
--- NOTE | 2022-12-26 14:09 | ED ---
URI HPI - General Chief Complaint: Upper Respiratory Infection Stated Complaint: Sore throat,chest congestion Time Seen by Provider: 12/26/22 13:33 Source: patient, RN notes reviewed Mode of arrival: ambulatory Limitations: no limitations - History of Present Illness Initial Comments: 27-year-old female presents emergency Department regarding cough and cold-like symptoms. Patient states that she tested positive for covid 19 at home. She has kids are sick. She complains of fever congestion sore throat and body aches. - Related Data Home Medications Medication Instructions Recorded Confirmed busPIRone HCl [Buspar] 5 mg PO BID 09/24/22 09/25/22 Vit No.179/Iron/Folic 1 each PO DAILY 09/25/22 09/25/22 [ Tablet] Previous Rx's Medication Instructions Recorded Ibuprofen [Motrin] 600 mg PO Q6HR PRN #60 tab 09/26/22 Allergies Allergy/AdvReac Type Severity Reaction Status Date / Time No Known Allergies Allergy Verified 12/26/22 13:44 Review of Systems ROS Statement: Those systems with pertinent positive or pertinent negative responses have been documented in the HPI. ROS Other: All systems not noted in ROS Statement are negative. Past Medical History Past Medical History: No Reported History Additional Past Medical History / Comment(s): left wrist fracture History of Any Multi-Drug Resistant Organisms: None Reported Past Surgical History: No Surgical Hx Reported Past Anesthesia/Blood Transfusion Reactions: No Reported Reaction Past Psychological History: Anxiety, Depression Smoking Status: Vaper Past Alcohol Use History: None Reported Past Drug Use History: None Reported - Past Family History Mother Family Medical History: No Reported History General Exam Limitations: no limitations General appearance: alert, in no apparent distress Head exam: Present: atraumatic, normocephalic, normal inspection Eye exam: Present: normal appearance, PERRL, EOMI. Absent: scleral icterus, conjunctival injection, periorbital swelling ENT exam: Present: normal exam, normal oropharynx, mucous membranes moist Neck exam: Present: normal inspection, full ROM. Absent: tenderness, meningi smus, lymphadenopathy Respiratory exam: Present: normal lung sounds bilaterally. Absent: respiratory distress, wheezes, rales, rhonchi, stridor Cardiovascular Exam: Present: regular rate, normal rhythm, normal heart sounds. Absent: systolic murmur, diastolic murmur, rubs, gallop, clicks Course Vital Signs 12/26/22 13:42 Temperature 98.4 F Pulse Rate 98 Respiratory 18 Rate Blood Pressure 126/72 O2 Sat by Pulse 99 Oximetry Medical Decision Making - Medical Decision Making Was pt. sent in by a medical professional or institution (GERALDINE Goldman, ENVIRONMENTAL ENGINEERING INTERN, urgent care, hospital, or long-term...) When possible be specific @ -No Did you speak to anyone other than the patient for history (EMS, parent, family, police, friend...)? What history was obtained from this source @ -No Did you review nursing and triage notes (agree or disagree)? Why? @ -I reviewed and agree with nursing and triage notes Were old charts reviewed (outside hosp., previous admission, EMS record, old EKG, old radiological studies, urgent care reports/EKG's, long-term records)? Report findings @ -No old charts were reviewed Differential Diagnosis (chest pain, altered mental status, abdominal pain women, abdominal pain men, vaginal bleeding, weakness, fever, dyspnea, syncope, headache, dizziness, GI bleed, back pain, seizure, CVA, palpatations, mental health, musculoskeletal)? @ -Covid 19, URI EKG interpreted by me (3pts min.). @ -[None X-rays interpreted by me (1pt min.). @ -None done CT interpreted by me (1pt min.). @ -None done U/S interpreted by me (1pt. min.). @ -None done What testing was considered but not performed or refused? (CT, X-rays, U/S, labs)? Why? @ -None What meds were considered but not given or refused? Why? @ -None Did you discuss the management of the patient with other professionals (professionals i.e. GERALDINE Goldman, ENVIRONMENTAL ENGINEERING INTERN, lab, RT, psych nurse, neonatal social worker, wheel fitter, teacher, forest fire officer, case hardener)? Give summary @ -No Was smoking cessation discussed for >3mins.? @ -No Was critical care preformed (if so, how long)? @ -No Were there social determinants of health that impacted care today? How? (Homelessness, low income, unemployed, alcoholism, drug addiction, transportation, low edu. Level, literacy, decrease access to med. care, correction, rehab)? @ -No Was there de-escalation of care discussed even if they declined (Discuss DNR or withdrawal of care, Hospice)? DNR status @ -No What co-morbidities impacted this encounter? (DM, HTN, Smoking, COPD, CAD, Cancer, CVA, ARF, Chemo, Hep., AIDS, mental health diagnosis, sleep apnea, morbid obesity)? @ -None Was patient admitted / discharged? Hospital course, mention meds given and route, prescriptions, significant lab abnormalities, going to OR and other pertinent info. @ -Discharge patient has positive Covid 19 home patient is currently symptomatic will be discharged in stable condition Undiagnosed new problem with uncertain prognosis? @ -No Drug Therapy requiring intensive monitoring for toxicity (Heparin, Nitro, Insulin, Cardizem)? @ -No Were any procedures done? @ -No Diagnosis/symptom? @ -[Covid 19 Acute, or Chronic, or Acute on Chronic? @ -Acute Uncomplicated (without systemic symptoms) or Complicated (systemic symptoms)? @ -Uncomplicated. Side effects of treatment? @ -No Exacerbation, Progression, or Severe Exacerbation? @ -No Poses a threat to life or bodily function? How? (Chest pain, [place], [place], pneumonia, PE, COPD, DKA, ARF, appy, cholecystitis, CVA, Diverticulitis, Homicidal, Suicidal, threat to staff... and all critical care pts) @ -No Disposition Clinical Impression: COVID-19 Disposition: HOME SELF-CARE Condition: Stable Additional Instructions: Please return to the Emergency Department if symptoms worsen or any other concerns. Is patient prescribed a controlled substance at d/c from ED?: No Referrals: Wally Orlando MD [Primary Care Provider] - 1-2 days Time of Disposition: 14:09
== END 2022-12-26 15:00 | disposition home or self-care (01) ==
LOC: EC 13:12
DX: U07.1 COVID-19 (principal); F32.A Depression, unspecified; F41.9 Anxiety disorder, unspecified; F17.290 Nicotine dependence, other tobacco product, uncomplicated; Z79.899 Other long term (current) drug therapy
CPT/HCPCS: 99283

== ENCOUNTER 2023-04-07 10:56 | Emergency (ER) | payer OTHER ==
[2023-04-07 11:31] VITALS: BP 114/72; PULSE 106; RESP 18; TEMP 98
--- NOTE | 2023-04-07 11:50 | ED ---
General Adult HPI - General Chief complaint: Recheck/Abnormal Lab/Rx Stated complaint: unknown length of preg/ care Time Seen by Provider: 04/07/23 11:07 Source: patient, RN notes reviewed Mode of arrival: ambulatory Limitations: no limitations - History of Present Illness Initial comments: 28 year old female presents to the emergency department for evaluation of . Patient reports that she is around 4 months and has been unable to get any care to this point. She states that she used to follow with Dr. Chavez who is leaving so she currently does not have an OB. She reports that she is not able to get into [facility] and therefore does not have any other options in the area. She does not have any current complaints. Denies any complications with her prior pregnancies. - Related Data Home Medications Medication Instructions Recorded Confirmed busPIRone HCl [Buspar] 5 mg PO BID 09/24/22 09/25/22 Vit No.179/Iron/Folic 1 each PO DAILY 09/25/22 09/25/22 [ Tablet] Previous Rx's Medication Instructions Recorded Ibuprofen [Motrin] 600 mg PO Q6HR PRN #60 tab 09/26/22 Allergies Allergy/AdvReac Type Severity Reaction Status Date / Time No Known Allergies Allergy Verified 04/07/23 11:05 Review of Systems ROS Statement: Those systems with pertinent positive or pertinent negative responses have been documented in the HPI. ROS Other: All systems not noted in ROS Statement are negative. Past Medical History Past Medical History: No Reported History Additional Past Medical History / Comment(s): left wrist fracture History of Any Multi-Drug Resistant Organisms: None Reported Past Surgical History: No Surgical Hx Reported Past Anesthesia/Blood Transfusion Reactions: No Reported Reaction Past Psychological History: Anxiety, Depression Smoking Status: Current every day smoker Past Alcohol Use History: None Reported Past Drug Use History: None Reported - Past Family History Mother Family Medical History: No Reported History General Exam Limitations: no limitations General appearance: alert, in no apparent distress Head exam: Present: atraumatic, normocephalic, normal inspection Eye exam: Present: normal appearance, PERRL, EOMI. Absent: scleral icterus, conjunctival injection, periorbital swelling ENT exam: Present: normal exam, mucous membranes moist Neck exam: Present: normal inspection. Absent: tenderness, meningismus, ly mphadenopathy Respiratory exam: Present: normal lung sounds bilaterally. Absent: respiratory distress, wheezes, rales, rhonchi, stridor Cardiovascular Exam: Present: regular rate, normal rhythm, normal heart sounds. Absent: systolic murmur, diastolic murmur, rubs, gallop, clicks GI/Abdominal exam: Present: soft, normal bowel sounds, other (Palpable uterine fundus ). Absent: distended, tenderness, guarding, rebound, rigid Extremities exam: Present: normal inspection, full ROM, normal capillary refill. Absent: tenderness, pedal edema, joint swelling, calf tenderness Back exam: Present: normal inspection Neurological exam: Present: alert, oriented X3 Psychiatric exam: Present: normal affect, normal mood Skin exam: Present: warm, dry, intact, normal color. Absent: rash Course Vital Signs 04/07/23 04/07/23 11:02 11:12 Temperature 98 F Pulse Rate 106 H Pulse Rate [ 106 H Pulse Oximetery ] Respiratory 18 Rate Blood Pressure 114/72 O2 Sat by Pulse 98 Oximetry Medical Decision Making - Medical Decision Making Was pt. sent in by a medical professional or institution (GERALDINE Goldamn, BRAKES INSPECTOR, urgent care, hospital, or custodial...) When possible be specific @ -No Did you speak to anyone other than the patient for history (EMS, parent, family, police, friend...)? What history was obtained from this source @ -No Did you review nursing and triage notes (agree or disagree)? Why? @ -I reviewed and agree with nursing and triage notes Were old charts reviewed (outside hosp., previous admission, EMS record, old EKG, old radiological studies, urgent care reports/EKG's, custodial records)? Report findings @ -No old charts were reviewed Differential Diagnosis (chest pain, altered mental status, abdominal pain women, abdominal pain men, vaginal bleeding, weakness, fever, dyspnea, syncope, headache, dizziness, GI bleed, back pain, seizure, CVA, palpatations, mental health, musculoskeletal)? @ -Not applicable EKG interpreted by me (3pts min.). @ -As above X-rays interpreted by me (1pt min.). @ -None done CT interpreted by me (1pt min.). @ -None done U/S interpreted by me (1pt. min.). @ -None done What testing was considered but not performed or refused? (CT, X-rays, U/S, labs)? Why? @ -None What meds were considered but not given or refused? Why? @ -None Did you discuss the management of the patient with other professionals (jeimy rea ilayla Goldman, PA, BRAKES INSPECTOR, lab, RT, psych nurse, manager social media, safety professional, teacher, photographic intelligence officer, insurance case manager)? Give summary @ -No Was smoking cessation discussed for >3mins.? @ -No Was critical care preformed (if so, how long)? @ -No Were there social determinants of health that impacted care today? How? (Homelessness, low income, unemployed, alcoholism, drug addiction, transportation, low edu. Level, literacy, decrease access to med. care, fpc, rehab)? @ -No Was there de-escalation of care discussed even if they declined (Discuss DNR or withdrawal of care, Hospice)? DNR status @ -No What co-morbidities impacted this encounter? (DM, HTN, Smoking, COPD, CAD, Cancer, CVA, ARF, Chemo, Hep., AIDS, mental health diagnosis, sleep apnea, morbid obesity)? @ -None Was patient admitted / discharged? Hospital course, mention meds given and route, prescriptions, significant lab abnormalities, going to OR and other pertinent info. @ -Discharge. Patient presented to the emergency department for evaluation of unknown gestation of unable to get into [facility]. Laboratory studies including CBC and CMP obtained which are essentially unremarkable. Quantitative hCG 6730; UA shows negative nitrate, negative leukocyte esterase. ultrasound obtained which shows a single viable intrauterine measuring 18 weeks 1 day with a heart rate of 149. Patient provided information for PRACTICE DIRECTOR on-call to follow-up with. Patient understanding agreeable discharge p kylie. Patient stable at time of discharge. Case discussed with Dr. Chavez Undiagnosed new problem with uncertain prognosis? @ -No Drug Therapy requiring intensive monitoring for toxicity (Heparin, Nitro, Insulin, Cardizem)? @ -No Were any procedures done? @ -No Diagnosis/symptom? @ -18-week gestation Acute, or Chronic, or Acute on Chronic? @ -Default Uncomplicated (without systemic symptoms) or Complicated (systemic symptoms)? @ -Uncomplicated Side effects of treatment? @ -No Exacerbation, Progression, or Severe Exacerbation? @ -No Poses a threat to life or bodily function? How? (Chest pain, [place], [place], pneumonia, PE, COPD, DKA, ARF, appy, cholecystitis, CVA, Diverticulitis, Homicidal, Suicidal, threat to staff... and all critical care pts) @ -No - Lab Data Result diagrams: 04/07/23 11:50 04/07/23 11:50 Lab Results 04/07/23 04/07/23 04/07/23 Range/Units 11:50 11:50 11:50 WBC 5.3 (3.8-10.6) k/uL RBC 3.93 (3.80-5.40) m/uL Hgb 12.1 (11.4-16.0) gm/dL Hct 35.8 (34.0-46.0) % MCV 91.0 (80.0-100.0) fL MCH 30.8 (25.0-35.0) pg MCHC 33.9 (31.0-37.0) g/dL RDW 13.3 (11.5-15.5) % Plt Count 121 L (150-450) k/uL MPV 11.0 Neutrophils % 67 % Lymphocytes % 27 % Monocytes % 4 % Eosinophils % 1 % Basophils % 0 % Neutrophils # 3.5 (1.3-7.7) k/uL Lymphocytes # 1.4 (1.0-4.8) k/uL Monocytes # 0.2 (0-1.0) k/uL Eosinophils # 0.1 (0-0.7) k/uL Basophils # 0.0 (0-0.2) k/uL Sodium 136 L (137-145) mmol/L Potassium 3.8 (3.5-5.1) mmol/L Chloride 107 (98-107) mmol/L Carbon Dioxide 24 (22-30) mmol/L Anion Gap 5 mmol/L BUN 8 (7-17) mg/dL Creatinine 0.53 (0.52-1.04) mg/dL Est GFR (CKD-EPI)AfAm >90 (>60 ml/min/1.73 sqM) Est GFR (CKD-EPI)NonAf >90 (>60 ml/min/1.73 sqM) Glucose 84 (74-99) mg/dL Calcium 8.8 (8.4-10.2) mg/dL Total Bilirubin 0.3 (0.2-1.3) mg/dL AST 19 (14-36) U/L ALT 13 (4-34) U/L Alkaline Phosphatase 45 (38-126) U/L Total Protein 6.6 (6.3-8.2) g/dL Albumin 3.7 (3.5-5.0) g/dL HCG, Quant 6730.0 mIU/mL Urine Color Colorless Urine Appearance Clear (Clear) Urine pH 7.0 (5.0-8.0) Ur Specific Warren 1.009 (1.001-1.035) Urine Protein Negative (Negative) Urine Glucose (UA) Negative (Negative) Urine Ketones Negative (Negative) Urine Blood Negative (Negative) Urine Nitrite Negative (Negative) Urine Bilirubin Negative (Negative) Urine Urobilinogen <2.0 (<2.0) mg/dL Ur Leukocyte Esterase Negative (Negative) Disposition Clinical Impression: 18 weeks gestation of Disposition: HOME SELF-CARE Condition: Stable Instructions (If sedation given, give patient instructions): (ED) Additional Instructions: Please follow up with [facility]. Return to the emergency department for new or worsening symptoms. Is patient prescribed a controlled substance at d/c from ED?: No Referrals: Chelle Stubbs DO [Doctor of Osteopathic Medicine] - 1-2 days Nonstaff,Physician [REFERRING] - 1-2 days Sacha Medeiros MD [STAFF PHYSICIAN] - 1-2 days Cindy Alberts DO [Doctor of Osteopathic Medicine] - 1-2 days
[2023-04-07 12:20] LABS: Basophils % (A) 0 %; Eosinophils # (A) 0.1 k/uL (0-0.7); Eosinophils % (A) 1 %; HCT 35.8 % (34.0-46.0); HGB 12.1 gm/dL (11.4-16.0); Lymphocytes # (A) 1.4 k/uL (1.0-4.8); Lymphocytes % (A) 27 %; MCH 30.8 pg (25.0-35.0); MCHC 33.9 g/dL (31.0-37.0); Monocytes # (A) 0.2 k/uL (0-1.0); Monocytes % (A) 4 %; Neutrophils # (A) 3.5 k/uL (1.3-7.7); Neutrophils % (A) 67 %; Platelet Count 121 k/uL (150-450); RBC 3.93 m/uL (3.80-5.40); RDW 13.3 % (11.5-15.5); WBC 5.3 k/uL (3.8-10.6)
[2023-04-07 12:21] LABS: Appearance,Urine Clear (Clear); Bilirubin,Urine Negative (Negative); Blood,Urine Negative (Negative); Color,Urine Colorless; Glucose,Urine (UA) Negative (Negative); Ketones,Urine Negative (Negative); Leukocyte Esterase,Urine Negative (Negative); Nitrite,Urine Negative (Negative); Protein,Urine Negative (Negative); Specific Gravity,Urine 1.009 (1.001-1.035); Urobilinogen,Urine <2.0 mg/dL (<2.0)
--- NOTE | 2023-04-07 12:41 | US ---
EXAMINATION TYPE: US OB >= 14 wk fetus DATE OF EXAM: 04/07/2023 COMPARISON: None CLINICAL INDICATION: Female, 28 years old with history of 3m preg no care; no care, , no pain or bleeding TECHNIQUE: OBTA GESTATIONAL AGE / DATING Physician Established: Not yet established Dates by LMP: LMP unknown Dates by First Scan: No previous this is first scan Dates by Current Scan: (18 weeks/1 days) EDC: 09/07/2023 SURVEY IUP: Single PLACENTA: Anterior PREVIA: No Previa DIEGO: 14.9 cm Normal CERVICAL LENGTH (transabdominal: norm > 3.0cm): 3.6 cm BIOMETRY PRESENTATION: Vertex LIE: Longitudinal BPD: 4.2 cm 18 weeks / 6 days HC: 15.1 cm 18 weeks / 2 days AC: 11.9 cm 17 weeks / 5 days FL: 2.5 cm 17 weeks / 4 days ESTIMATED WEIGHT IN GRAMS: 205 grams ESTIMATED WEIGHT IN LBS/OZ: 0 lbs. 7 oz. WEIGHT PERCENTAGE BASED ON HC/AC: 1.2 Normal FL/AC: 21 Normal HEART RATE: 149 bpm RHYTHM: Normal IMPRESSION: Single viable intrauterine with estimated gestational weight of 205 g.
[2023-04-07 13:10] LABS: ALT 13 U/L (4-34); AST 19 U/L (14-36); African American GFR (CKD) >90 (>60 ml/min/1.73 sqM); Albumin 3.7 g/dL (3.5-5.0); Alkaline Phosphatase 45 U/L (38-126); Anion Gap 5 mmol/L; Blood Urea Nitrogen 8 mg/dL (7-17); Calcium 8.8 mg/dL (8.4-10.2); Carbon Dioxide 24 mmol/L (22-30); Chloride 107 mmol/L (98-107); Glucose 84 mg/dL (74-99); Non-African American GFR(CKD) >90 (>60 ml/min/1.73 sqM); Potassium 3.8 mmol/L (3.5-5.1); Sodium 136 mmol/L (137-145); Total Bilirubin 0.3 mg/dL (0.2-1.3); Total Protein 6.6 g/dL (6.3-8.2)
== END 2023-04-07 13:57 | disposition home or self-care (01) ==
LOC: EC 10:56
DX: O09.32 Supervision of pregnancy with insufficient antenatal care, second trimester (principal); O99.332 Smoking (tobacco) complicating pregnancy, second trimester; F17.200 Nicotine dependence, unspecified, uncomplicated; Z86.59 Personal history of other mental and behavioral disorders; Z3A.18 18 weeks gestation of pregnancy
CPT/HCPCS: 36415; 76805; 80053; 81003; 84702; 85025; 99284

== ENCOUNTER → 2023-07-04 | Outpatient (CLI) | payer OTHER ==
--- NOTE | 2023-07-04 11:17 | US ---
EXAMINATION TYPE: US OB anatomy transabd DATE OF EXAM: 07/04/2023 COMPARISON: 04/07/2023 CLINICAL INDICATION: Female, 28 years old with history of Z34.90 ENCNTR FOR SUPRVSN OF NORMAL PREGNAN CY, UNS; Late anatomy. TECHNIQUE: Transabdominal (TA) EXAM MEASUREMENTS: GESTATIONAL AGE / DATING Physician Established: (30 weeks/5 days) EDC: 09/07/2023 Dates by First Scan: (30 weeks/5 days) EDC: 09/07/2023 Dates by Current Scan for: (30 weeks/3 days) EDC: 09/09/2023 SURVEY IUP: Single PLACENTA: Anterior PREVIA: No previa DIEGO: 10.2 cm Normal CERVICAL LENGTH (transabdominal: norm > 3.0cm): 3.2 cm BIOMETRY PRESENTATION: Vertex BPD: 7.5 cm 30 weeks / 1 days HC: 28.5 cm 31 weeks / 3 days AC: 26.0 cm 30 weeks / 2 days FL: 5.6 cm 29 weeks / 4 days ESTIMATED WEIGHT IN GRAMS: 1499 grams ESTIMATED WEIGHT IN LBS/OZ: 3 lbs. 5 oz. WEIGHT PERCENTAGE BASED ON ESTABLISHED DATE: 18 % HC/AC: 1.1 Normal FL/AC: 22% Normal HEART RATE: 144 bpm RHYTHM: Normal ANATOMY SEEN (within normal limits): * Lateral Vent (< 1 cm) 0.4 cm * Cerebellum (varies with age) Choroid Plexus (bilateral) Midline Falx Cavus Septi Pellucidi Four Chamber Heart Outflow tracts: LVOT/RVOT Stomach Situs Nose / Lips Diaphragm Kidneys (bilateral) Bladder Three Vessel Cord Longitudinal Spine - limited Transverse Spine Arms (bilateral) Legs (bilateral) ANATOMY SEEN (does not appear within normal limits): ANATOMY NOT SEEN: Not seen due to late gestational age * Cisterna Magna (< 1.1 cm) * Nuchal Fold (< 0.6 cm) Cord Insert IMPRESSION: Single live intrauterine gestational sac age 30 weeks 3 days, additional information as described abo ve.
== END | disposition home or self-care (01) ==
LOC: RADUSWWP 10:00
PROVIDERS: ATTEND Obstetrics & Gynecology
DX: Z34.90 Encounter for supervision of normal pregnancy, unspecified, unspecified trimester (principal)
CPT/HCPCS: 76811

== ENCOUNTER → 2023-08-28 | Outpatient (CLI) | payer OTHER ==
--- NOTE | 2023-08-28 15:11 | US ---
EXAMINATION TYPE: US OB >= 14 wk fetus DATE OF EXAM: 08/28/2023 COMPARISON: 07/04/23 anatomy CLINICAL INDICATION: Female, 28 years old with history of Z34.83 ENCOUNTER FOR NORMAL SUPERVISION OF PREG; TECHNIQUE: Transabdominal (TA) GESTATIONAL AGE / DATING Physician Established: (38 weeks/4 days) EDC: 09/07/23 Dates by First Scan: (18 weeks/1 days) EDC: 09/07/23 Dates by Current Scan: (37 weeks/1 days) EDC: 09/17/23 Beta HCG (if available): Not available at this time SURVEY IUP: Single PLACENTA: Anterior PREVIA: No Previa DIEGO: 8.23 cm CERVICAL LENGTH (transabdominal: norm > 3.0cm): 3.0 cm *limited visualization BIOMETRY PRESENTATION: Vertex LIE: Transverse with head maternal L BPD: 9.0 cm 36 weeks / 4 days HC: 32.39 cm 36 weeks / 5 days AC: 34.60 cm 38 weeks / 4 days FL: 7.10 cm 36 weeks / 3 days ESTIMATED WEIGHT IN GRAMS: 3244 grams ESTIMATED WEIGHT IN LBS/OZ: 7 lbs. 2 oz. WEIGHT PERCENTAGE BASED ON ESTABLISHED DATES: 40% HC/AC: 0.94 Normal FL/AC: 21 Normal HEART RATE: 142 bpm RHYTHM: Normal IMPRESSION: Single live intrauterine with estimated gestational age of age 37 weeks 1 day.
== END | disposition home or self-care (01) ==
LOC: RADUSWWP 09:58
PROVIDERS: ATTEND Obstetrics & Gynecology
DX: Z34.83 Encounter for supervision of other normal pregnancy, third trimester (principal); Z3A.37 37 weeks gestation of pregnancy
CPT/HCPCS: 76805

== ENCOUNTER → 2023-11-15 | Outpatient (CLI) | payer OTHER ==
--- NOTE | 2023-11-15 12:45 | US ---
EXAMINATION TYPE: US transvaginal DATE OF EXAM: 11/15/2023 COMPARISON: OB ultrasound 08/28/2023 CLINICAL INDICATION: Female, 28 years old with history of N92.6 Irregular bleeding; polymenorrhea, me norrhagia TECHNIQUE: Transvaginal (TV). Transvaginal sonographic images were medically necessary to better as sess the following anatomy: Date of LMP: 10/27/23 EXAM MEASUREMENTS: Uterus: 9.3x5.7x8.1 cm Endometrial Stripe: 1.7 cm Right Ovary: 4.2x3.2x2.4 cm Left Ovary: 3.1x1.7x2.0 cm 1. Uterus: Anteverted dilated myometrial veins, bulky appearance 2. Endometrium: heterogenous near fundus, no color flow identified within the endometrium. 3. Right Ovary: wnl 4. Left Ovary: poor visualization due to bowel gas 5. Bilateral Adnexa: Obscured by overlying bowel gas 6. Posterior cul-de-sac: moderate free fluid Enhanced myometrial vascularity may be secondary to recent . IMPRESSION: 1. Endometrium is at the top normal for thickness. 2. Moderate simple appearing free fluid. 3. Enhancement myometrial vascularity is likely secondary to recent .
== END | disposition home or self-care (01) ==
LOC: RADUSWWP 11:33
PROVIDERS: ATTEND Internal Medicine Geriatric Medicine
DX: N92.0 Excessive and frequent menstruation with regular cycle (principal)
CPT/HCPCS: 76830

== ENCOUNTER 2024-09-06 17:02 | Emergency (ER) | payer OTHER ==
[2024-09-06 17:47] LABS: Bilirubin,Urine Negative (Negative); Blood,Urine Negative (Negative); Color,Urine Yellow; Glucose,Urine (UA) Negative (Negative); Ketones,Urine Negative (Negative); Leukocyte Esterase,Urine Moderate (Negative); Mucus,Urine Few /hpf; Nitrite,Urine Negative (Negative); PH, Urine 6.0 (5.0-8.0); Protein,Urine Negative (Negative); RBC,Urine 2 /hpf (0-5); Specific Gravity,Urine 1.031 (1.001-1.035); Squamous Epithelial Cell,Urine 22 /hpf (0-4); Urobilinogen,Urine <2.0 mg/dL (<2.0); WBC,Urine 4 /hpf (0-5)
--- NOTE | 2024-09-06 18:11 | ED ---
General Adult HPI - General Chief complaint: Recheck/Abnormal Lab/Rx Stated complaint: STD testing Time Seen by Provider: 09/06/24 17:19 Source: patient Mode of arrival: ambulatory Limitations: no limitations - History of Present Illness Initial comments: 29-year-old female requesting STI testing and testing. Patient reports that she has had some yellow vaginal discharge recently. She denies any odor or itching. No pelvic pain. No vaginal bleeding. She states that her her last normal menstrual cycle was about 2 months ago. She did have some spotting last month but this did not seem consistent with her usual cycle. Think she may be . No urinary symptoms. No fever or chills. Patient is concerned that she has bacterial vaginosis. - Related Data Home Medications Medication Instructions Recorded Confirmed busPIRone HCl [Buspar] 5 mg PO BID 09/24/22 09/25/22 Vit No.179/Iron/Folic 1 each PO DAILY 09/25/22 09/25/22 [ Tablet] Previous Rx's Medication Instructions Recorded Ibuprofen [Motrin] 600 mg PO Q6HR PRN #60 tab 09/26/22 Allergies Allergy/AdvReac Type Severity Reaction Status Date / Time No Known Allergies Allergy Verified 09/06/24 17:17 Review of Systems ROS Statement: Those systems with pertinent positive or pertinent negative responses have been documented in the HPI. ROS Other: All systems not noted in ROS Statement are negative. Past Medical History Past Medical History: No Reported History Additional Past Medical History / Comment(s): left wrist fracture History of Any Multi-Drug Resistant Organisms: None Reported Past Surgical History: No Surgical Hx Reported Past Anesthesia/Blood Transfusion Reactions: No Reported Reaction Past Psychological History: Anxiety, Depression Smoking Status: Current every day smoker Past Alcohol Use History: None Reported Past Drug Use History: None Reported - Past Family History Mother Family Medical History: No Reported History General Exam Limitations: no limitations General appearance: alert, in no apparent distress Head exam: Present: atraumatic, normocephalic, normal inspection Eye exam: Present: normal appearance, EOMI Neck exam: Present: normal inspection. Absent: meningismus Respiratory exam: Absent: respiratory distress Cardiovascular Exam: Present: regular rate Expanded Female exam: Present: deferred (Declined) Neurological exam: Present: alert, oriented X3 Psychiatric exam: Present: normal affect, normal mood Skin exam: Present: warm, dry, normal color Course Vital Signs 09/06/24 09/06/24 17:13 18:35 Temperature 98.2 F 98.0 F Pulse Rate 87 76 Respiratory 18 20 Rate Blood Pressure 131/84 136/76 O2 Sat by Pulse 99 97 Oximetry Medical Decision Making - Medical Decision Making Was pt. sent in by a medical professional or institution (GERALDINE Goldman, MA[employer], urgent care, hospital, or shelter...) When possible be specific @ -No Did you speak to anyone other than the patient for history (EMS, parent, family, police, friend...)? What history was obtained from this source @ -No Did you review nursing and triage notes (agree or disagree)? Why? @ -I reviewed and agree with nursing and triage notes Were old charts reviewed (outside hosp., previous admission, EMS record, old EKG, old radiological studies, urgent care reports/EKG's, shelter records)? Report findings @ -No old charts were reviewed Differential Diagnosis (chest pain, altered mental status, abdominal pain women, abdominal pain men, vaginal bleeding, weakness, fever, dyspnea, syncope, headache, dizziness, GI bleed, back pain, seizure, CVA, palpatations, mental health, musculoskeletal)? @ -Differential includes , gonorrhea, chlamydia, trichomonas, urinary tract infection, not an all-inclusive list EKG interpreted by me (3pts min.). @ -As above X-rays interpreted by me (1pt min.). @ -None done CT interpreted by me (1pt min.). @ -None done U/S interpreted by me (1pt. min.). @ -None done What testing was considered but not performed or refused? (CT, X-rays, U/S, labs)? Why? @ -None What meds were considered but not given or refused? Why? @ -None Did you discuss the management of the patient with other professionals (professionals i.e. GERALDINE Goldman, [employer], lab, RT, psych nurse, geriatric social worker, photographic colorist, teacher, account officer, field case manager)? Give summary @ -No Was smoking cessation discussed for >3mins.? @ -No Was critical care preformed (if so, how long)? @ -No Were there social determinants of health that impacted care today? How? (Homelessness, low income, unemployed, alcoholism, drug addiction, transportation, low edu. Level, literacy, decrease access to med. care, fdc, rehab)? @ -No Was there de-escalation of care discussed even if they declined (Discuss DNR or withdrawal of care, Hospice)? DNR status @ -No What co-morbidities impacted this encounter? (DM, HTN, Smoking, COPD, CAD, Cancer, CVA, ARF, Chemo, Hep., AIDS, mental health diagnosis, sleep apnea, morbid obesity)? @ -None Was patient admitted / discharged? Hospital course, mention meds given and route, prescriptions, significant lab abnormalities, going to OR and other pertinent info. @ -29-year-old female presenting with chief complaint of yellow vaginal discharge. She is requesting STI and testing. History and physical e xamination are conducted. Patient declines pelvic exam, she will self swab. Rapid trichomonas is negative. Urine shows signs of contamination with 22 squamous cells. Positive hCG. Patient is having no pelvic pain or vaginal bleeding. Gonorrhea and Chlamydia testing are sent out. Patient is declining empiric treatment. States that she is mostly concerned that she has bacterial vaginosis and is requesting treatment for that. She is treated with metronidazole. She is educated on today's findings and the need for follow-up with [facility]. Follow-up with PCP. Report back to ER with any new or worsening symptoms. Discussed return parameters and answered all questions. Patient conveyed verbal understanding and agreed to the plan. I discussed this case in detail with my attending Dr. Bee Undiagnosed new problem with uncertain prognosis? @ -No Drug Therapy requiring intensive monitoring for toxicity (Heparin, Nitro, Insulin, Cardizem)? @ -No Were any procedures done? @ -No Diagnosis/symptom? @ -, bacterial vaginosis Acute, or Chronic, or Acute on Chronic? @ -Acute Uncomplicated (without systemic symptoms) or Complicated (systemic symptoms)? @ -Uncomplicated Side effects of treatment? @ -No Exacerbation, Progression, or Severe Exacerbation? @ -No Poses a threat to life or bodily function? How? (Chest pain, [place], [place], pneumonia, PE, COPD, DKA, ARF, appy, cholecystitis, CVA, Diverticulitis, Homicidal, Suicidal, threat to staff... and all critical care pts) @ -Unlikely - Lab Data Lab Results 09/06/24 09/06/24 09/06/24 Range/Units 17:25 17:25 17:25 Urine Color Yellow Urine Appearance Cloudy H (Clear) Urine pH 6.0 (5.0-8.0) Ur Specific [place] 1.031 (1.001-1.035) Urine Protein Negative (Negative) Urine Glucose (UA) Negative (Negative) Urine Ketones Negative (Negative) Urine Blood Negative (Negative) Urine Nitrite Negative (Negative) Urine Bilirubin Negative (Negative) Urine Urobilinogen <2.0 (<2.0) mg/dL Ur Leukocyte Esterase Moderate H (Negative) Urine RBC 2 (0-5) /hpf Urine WBC 4 (0-5) /hpf Ur Squamous Epith Cells 22 H (0-4) /hpf Urine Mucus Few H (None) /hpf Urine HCG, Qual Detected (Not Detectd) Chlamydia DNA (PCR) Negative (Negative) N.gonorrhoeae DNA Probe Negative (Negative) Trichomonas Ag (Rapid) (Negative) 09/06/24 Range/Units 17:27 Urine Color Urine Appearance (Clear) Urine pH (5.0-8.0) Ur Specific [place] (1.001-1.035) Urine Protein (Negative) Urine Glucose (UA) (Negative) Urine Ketones (Negative) Urine Blood (Negative) Urine Nitrite (Negative) Urine Bilirubin (Negative) Urine Urobilinogen (<2.0) mg/dL Ur Leukocyte Esterase (Negative) Urine RBC (0-5) /hpf Urine WBC (0-5) /hpf Ur Squamous Epith Cells (0-4) /hpf Urine Mucus (None) /hpf Urine HCG, Qual (Not Detectd) Chlamydia DNA (PCR) (Negative) N.gonorrhoeae DNA Probe (Negative) Trichomonas Ag (Rapid) Negative (Negative) Disposition Clinical Impression: , Bacterial vaginosis Disposition: HOME SELF-CARE Condition: Good Instructions (If sedation given, give patient instructions): (ED), Bacterial Vaginosis (ED) Additional Instructions: Follow-up with [facility]. Report back to ER with any new or worsening symptoms. Today you received treatment for bacterial vaginosis. We will contact you if the gonorrhea/chlamydia testing is positive. Is patient prescribed a controlled substance at d/c from ED?: No Referrals: None,Stated [Primary Care Provider] - 1-2 days Roibn Resendiz MD [STAFF PHYSICIAN] - 1-2 days Time of Disposition: 18:11
[2024-09-06] MEDS: metroNIDAZOLE 500 MG TAB PO STA (18:34)
[2024-09-06 18:35] VITALS: BP 136/76; PULSE 76; RESP 20; TEMP 98
[2024-09-07 13:39] LABS: C. trachomatis,PCR Negative (Negative)
[2024-09-07 13:46] LABS: N. gonorrhoeae,PCR Negative (Negative)
== END 2024-09-06 18:36 | disposition home or self-care (01) ==
LOC: EC 17:02
DX: O23.599 Infection of other part of genital tract in pregnancy, unspecified trimester (principal); B96.89 Other specified bacterial agents as the cause of diseases classified elsewhere; O99.330 Smoking (tobacco) complicating pregnancy, unspecified trimester; F17.200 Nicotine dependence, unspecified, uncomplicated
CPT/HCPCS: 81001; 81025; 87491; 87591; 87808; 99283